=== PATIENT | female | born 1970 | race Caucasian/White ===

== ENCOUNTER → 2016-06-05 | Outpatient (CLI) | payer MEDICAID ==
[2016-06-05 08:36] LABS: CHLORIDE,CL 113 mmol/L (98-110); SODIUM,NA 142 mmol/L (136-146)
== END ==
LOC: MW.CHRC 07:53
PROVIDERS: ATTEND Family Medicine
DX: I10 Essential (primary) hypertension (principal); E78.00 Pure hypercholesterolemia, unspecified; R73.01 Impaired fasting glucose
CPT/HCPCS: 36415; 80053; 80061; 83036; 93005

== ENCOUNTER → 2016-06-27 | Outpatient (CLI) | payer MEDICAID ==
--- NOTE | 2016-06-27 13:53 | MY ---
EXAMINATION: Bilateral digital mammography utilizing CAD. HISTORY: Screening exam. Baseline. FINDINGS: Bilateral scattered fibroglandular densities. No suspicious calcifications, masses or a rchitectural distortions. No pathologic appearing lymph nodes, no abnormal skin thickening or nipp le inversion. CAD highlighted regions appear normal at this time. IMPRESSION: BI-RADS category I - negative mammogram. Continued screening according to ACR-ACS gu idelines suggested. THE FALSE-NEGATIVE RATE OF MAMMOGRAM IS APPROXIMATELY 10%. MANAGEMENT OF A PALPABLE ABNORMALITY MUST BE BASED UPON CLINICAL GROUNDS. SENSITIVITY FOR DETECTION OF ABNORMALITIES IN DENSE BREASTS IS LOW. NOTE: A letter will be sent to the patient regarding findings. [facility] [place] [phone] - FAX [phone]
== END ==
LOC: MW.MAM 10:21
PROVIDERS: ATTEND Obstetrics & Gynecology
DX: Z12.31 Encounter for screening mammogram for malignant neoplasm of breast (principal)
CPT/HCPCS: G0202; G0202-26

== ENCOUNTER 2016-09-05 18:16 | Emergency (ER) | payer MEDICAID ==
--- NOTE | 2016-09-05 18:54 | EDM.PDOC ---
ED HPI GENERAL MEDICAL PROBLEM - General Chief Complaint: General Stated Complaint: SUNBURN ON LT LEG CALF Time Seen by Provider: 09/05/16 18:49 Source of Information: Reports: Patient History Limitations: Reports: No Limitations - History of Present Illness INITIAL COMMENTS - FREE TEXT/NARRATIVE: HISTORY AND PHYSICAL: [Recipient girl who now presents with a rash to her left lower leg posteriorly] History of Present Illness: [Rash began yesterday has some mild itching Recently treated for cellulitis with cephalexin] Review of Systems: As per history of present illness and below otherwise all systems reviewed and negative. Past medical history: As per history of present illness and as reviewed below otherwise noncontributory. Surgical history: As per history of present illness and as reviewed below otherwise noncontributory. Social history: No reported history of drug or alcohol abuse. Family history: As per history of present illness and as reviewed below otherwise noncontributory. Physical exam: Alert oriented female, answering questions appropriately, she has good eye contact. Primary care provider is Dr. dickey. HEENT: Atraumatic, normocehpalic, pupils reactive, negative for conjunctival pallor or scleral icterus, mucous membranes moist, throat clear, neck supple, nontender, trachea midline. Lungs: Clear to auscultation, breath sounds equal bilaterally, chest non tender. Heart: S1S2, regular, negative for clicks, rubs, or JVD. Abdomen: Soft, nondistended, nontender. Negative for masses or hepatossplenmegaly. Negative for costovertebral tenderness. Pelvis: Stable nontender. Genitourinary: Deferred. Rectal: Deferred Extremities: Atraumatic, negative for cords or calf pain. A posterior left calf has raised erythema. It is hot to touch, 2 small areas bilaterally have been opened and now are crusted over. Pedal pulses are present sensation is intact. Neurovascular unremarkable. Neuro: Awake, alert, oriented. Cranial nerves II through XII unremarkable. Cerebellum unremarkable. Motor and sensory unremarkable throughout. Exam nonfocal. Diagnostics: [] Therapeutics: [] Impression: [] Cellulitis left calf Plan: [Antibiotic therapy of Bactrim DS one twice a day #28 no refill Moist heat to this area 20 minutes daily Followup with Dr. dickey in the next 4-5 days] Definitive disposition and diagnosis as appropriate pending reevaluation and review of above. Onset: Sudden Duration: Day(s): (2), Getting Worse Location: Reports: Lower Extremity, Left Quality: Reports: Burning Severity: Moderate Improves with: Reports: None Left Lower Leg Pain Score (Numeric/FACES): 7 - Related Data Allergies Allergy/AdvReac Type Severity Reaction Status Date / Time carbamazepine [From Tegretol] Allergy Other Verified 09/05/16 18:48 Home Meds: Home Meds Azithromycin [Zithromax] 1 package PO DAILY #1 packet 05/09/15 [Rx] Citalopram [Citalopram HBr] 40 mg PO DAILY 05/09/15 [History] Diclofenac Sodium [Voltaren] 25 mg PO BID 05/09/15 [History] Haloperidol [Haloperidol] 5 mg PO DAILY 05/09/15 [History] Hydrocort/Neomycin/Polymyxin B [Cortisporin Otic Soln] 3 drop .XX QID #1 bottle 05/09/15 [Rx] Lisinopril [Lisinopril] 10 mg PO DAILY 05/09/15 [History] Montelukast [Singulair] 10 mg PO BEDTIME 05/09/15 [History] Ziprasidone HCl [Ziprasidone HCl] 60 mg PO DAILY 05/09/15 [History] guaiFENesin/Codeine Phosphate [Cheratussin AC Syrup] 5 ml PO Q4HR PRN #236 liquid 05/09/15 [Rx] hydrOXYzine HCl [Atarax] 10 mg PO DAILY 05/09/15 [History] traMADol [Take Home: traMADol 50 MG, 4 Tab Pack] 50 mg PO BID 05/09/15 [History] Sulfamethoxazole/Trimethoprim [Bactrim Ds Tablet] 1 each PO BID #28 tablet 09/05 [Rx] Past Medical History HEENT History: Reports: Impaired Vision Cardiovascular History: Reports: Hypertension, SOB on Exertion, Syncope Respiratory History: Reports: Asthma, Bronchitis, Recurrent Gastrointestinal History: Reports: Other (See Below) Other Gastrointestinal History: abdominal abscess Genitourinary History: Reports: None 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: Reports: 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 Musculoskeletal History: Reports: Arthritis, Back Pain, Chronic, Other (See Below) Other Musculoskeletal History: tendonitis Neurological History: Reports: None, Seizure, Vertigo Psychiatric History: Reports: Addiction, Anxiety, Bipolar, Depression Endocrine/Metabolic History: Reports: Diabetes, Type II, Obesity/BMI 30+, Other (See Below) Other Endocrine/Metabolic History: states borderline DM Hematologic History: Reports: None Immunologic History: Reports: None Oncologic (Cancer) History: Reports: None Dermatologic History: Reports: None - Infectious Disease History Infectious Disease History: Reports: Chicken Pox - Past Surgical History GI Surgical History: Reports: Cholecystectomy, Other (See Below) Musculoskeletal Surgical History: Reports: Other (See Below) Dermatological Surgical History: Reports: Other (See Below) Social & Family History - Family History Family Medical History: Noncontributory - Tobacco Use Smoking Status *Q: Current Every Day Smoker Years of Tobacco use: 15 Packs/Tins Daily: 1 - Recreational Drug Use Recreational Drug Use: No Drug Use in Last 12 Months: No ED ROS GENERAL - Review of Systems Review Of Systems: ROS reveals no pertinent complaints other than HPI. ED EXAM, GENERAL - Physical Exam Exam: See Below (See dictation) Course - Vital Signs Last Recorded V/S: Last Vital Signs Temp 37.0 C 09/05/16 18:41 Pulse 105 H 09/05/16 18:41 Resp 20 09/05/16 18:41 BP 123/67 09/05/16 18:41 Pulse Ox 98 09/05/16 18:41 Departure - Departure Time of Disposition: 18:53 Disposition: Home, Self-Care 01 Condition: good Clinical Impression: Cellulitis of left lower leg - Discharge Information Prescriptions: Sulfamethoxazole/Trimethoprim [Bactrim Ds Tablet] 1 each PO BID #28 tablet Forms: ED Department Discharge Additional Instructions: The following information is given to patients seen in the emergency department who are being discharged to home. This information is to outline your options for follow-up care. We provide all patients seen in our emergency department with a follow-up referral. The need for follow-up, as well as the timing and circumstances, are variable depending upon the specifics of your emergency department visit. If you don't have a primary care physician on staff, we will provide you with a referral. We always advise you to contact your personal physician following an emergency department visit to inform them of the circumstance of the visit and for follow-up with them and/or the need for any referrals to a consulting specialist. The emergency department will also refer you to a specialist when appropriate. This referral assures that you have the opportunity for followup care with a specialist. All of these measure are taken in an effort to provide you with optimal care, which includes your followup. Under all circumstances we always encourage you to contact your private physician who remains a resource for coordinating your care. When calling for followup care, please make the office aware that this follow-up is from your recent emergency room visit. If for any reason you are refused follow-up, please contact the [facility] emergency department at and asked to speak to the emergency department charge nurse. Please wash with Hib[place] daily Prescription has been sent to [facility] Followup with Dr. dickey in 4-5 days
[2016-09-05 19:18] VITALS: BP 120/71
== END 2016-09-05 19:09 | disposition home or self-care (01) ==
LOC: MW.ED 18:16
DX: L03.116 Cellulitis of left lower limb (principal); I10 Essential (primary) hypertension; J45.909 Unspecified asthma, uncomplicated; M19.90 Unspecified osteoarthritis, unspecified site; F41.9 Anxiety disorder, unspecified; F31.9 Bipolar disorder, unspecified; E11.9 Type 2 diabetes mellitus without complications; E66.9 Obesity, unspecified; F17.210 Nicotine dependence, cigarettes, uncomplicated; Z90.49 Acquired absence of other specified parts of digestive tract; Z79.2 Long term (current) use of antibiotics; Z79.899 Other long term (current) drug therapy; Z88.8 Allergy status to other drugs, medicaments and biological substances
CPT/HCPCS: 99283

== ENCOUNTER 2017-11-23 13:32 | Emergency (ER) | payer MEDICAID ==
[2017-11-23 13:55] VITALS: BP 131/72
--- NOTE | 2017-11-23 14:11 | EDM.PDOC ---
ED HPI GENERAL MEDICAL PROBLEM - General Chief Complaint: ENT Problem Stated Complaint: SORE THROAT Time Seen by Provider: 11/23/17 14:10 Source of Information: Reports: Patient History Limitations: Reports: No Limitations - History of Present Illness INITIAL COMMENTS - FREE TEXT/NARRATIVE: HISTORY AND PHYSICAL: History of present illness: Debora is a 47-year-old female here for complaint of sore throat and bronchitis. She is complaining of sore throat, rhinorrhea, ear pain, cough, and wheezing x 1 week. She denies any fevers, chills, nausea, vomiting, diarrhea, chest pain, abdominal pain. She states she has a history of bronchitis. Patient has COPD and uses pulmicort, rescue inhaler, and nebulizer. She has been using these which helps. Patient states the only thing that helps is a steroid. Patient notes that she has a lot of stress and is having "hour long seizures all day long" the past week. She denies any seizure activity today. She states her boyfriend never called EMS for her seizures and she hasn't had a follow up for this. She also notes a history of psuedoseizures and bipolar disorder. Patient has seen Dr. Yi in the past. Review of systems: As per history of present illness and below otherwise all systems reviewed and negative. Past medical history: As per history of present illness and as reviewed below otherwise noncontributory. Surgical history: As per history of present illness and as reviewed below otherwise noncontributory. Social history: Smokes 1 ppd Family history: As per history of present illness and as reviewed below otherwise noncontributory. Physical exam: General: patient sitting comfortably in no acute distress HEENT: Atraumatic, normocephalic, pupils reactive, negative for conjunctival pallor or scleral icterus, mucous membranes moist, throat clear, neck supple, nontender, trachea midline. Lungs: Clear to auscultation, breath sounds equal bilaterally, chest nontender. Heart: S1S2, regular, negative for clicks, rubs, or JVD. Abdomen: Apical wheezing noted, no rhonchi or rales. Soft, nondistended, nontender. Negative for masses or hepatosplenomegaly. Negative for costovertebral tenderness. Pelvis: Stable nontender. Genitourinary: Deferred. Rectal: Deferred. Extremities: Atraumatic, negative for cords or calf pain. Neurovascular unremarkable. Neuro: Awake, alert, oriented. Cranial nerves II through XII unremarkable. Cerebellum unremarkable. Motor and sensory unremarkable throughout. Exam nonfocal. Notes: Diagnostics: Rapid Strep, UA, Chest x-ray Therapeutics: Medrol dosepak Azithromycin Impression: Acute bronchitis Plan: 1. Continue rescue inhaler as needed. Take antibiotic and medrol dosepak as prescribed 2. Follow up with primary care provider. Follow up with neurologist or PCP regarding seizures. 3. Return to ED as needed as discussed Definitive disposition and diagnosis as appropriate pending reevaluation and review of above. Back Pain Score (Numeric/FACES): 8 - Related Data Allergies Allergy/AdvReac Type Severity Reaction Status Date / Time carbamazepine [From Tegretol] Allergy Other Verified 11/23/17 13:47 sulfamethoxazole Allergy Hives Verified 11/23/17 13:47 [From Bactrim] trimethoprim [From Bactrim] Allergy Hives Verified 11/23/17 13:47 seasonal Allergy Itching Uncoded 11/23/17 13:47 Home Meds: Home Meds Haloperidol 5 mg PO DAILY 05/09/15 [History] Montelukast [Singulair] 10 mg PO BEDTIME 05/09/15 [History] Ziprasidone HCl 60 mg PO DAILY 05/09/15 [History] hydrOXYzine HCl [Atarax] 10 mg PO DAILY 05/09/15 [History] Losartan [Cozaar] 50 mg PO DAILY 11/23/17 [History] Nabumetone 500 mg PO DAILY 11/23/17 [History] Topiramate 50 mg PO BID 11/23/17 [History] Venlafaxine [Effexor] 37.5 mg PO DAILY 11/23/17 [History] Past Medical History HEENT History: Reports: Impaired Vision Cardiovascular History: Reports: Hypertension, SOB on Exertion, Syncope Respiratory History: Reports: Asthma, Bronchitis, Recurrent Gastrointestinal History: Reports: Other (See Below) Other Gastrointestinal History: abdominal abscess Genitourinary History: Reports: None Other Genitourinary History: cystitis 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 AGENT History: Reports: None Musculoskeletal History: Reports: Arthritis, Back Pain, Chronic, Other (See Below) Other Musculoskeletal History: tendonitis Neurological History: Reports: None, Seizure, Vertigo Psychiatric History: Reports: Addiction, Anxiety, Bipolar, Depression Endocrine/Metabolic History: Reports: Diabetes, Type II, Obesity/BMI 30+, Other (See Below) Other Endocrine/Metabolic History: states borderline DM Hematologic History: Reports: None Immunologic History: Reports: None Oncologic (Cancer) History: Reports: None Dermatologic History: Reports: None Other Dermatologic History: cellulitis - Infectious Disease History Infectious Disease History: Reports: Chicken Pox - Past Surgical History GI Surgical History: Reports: Cholecystectomy, Other (See Below) Musculoskeletal Surgical History: Reports: Other (See Below) Dermatological Surgical History: Reports: Other (See Below) Social & Family History - Family History Family Medical History: Noncontributory - Tobacco Use Smoking Status *Q: Current Every Day Smoker Years of Tobacco use: 30 Packs/Tins Daily: 1 - Caffeine Use Caffeine Use: Reports: None Caffeine Use Comment: 4cups/day - Recreational Drug Use Recreational Drug Use: Yes Drug Use in Last 12 Months: Yes Recreational Drug Type: Reports: Cocaine, Heroin, Marijuana/Hashish, Methamphetamine ED ROS ENT - Review of Systems Review Of Systems: ROS reveals no pertinent complaints other than HPI. ED EXAM, ENT - Physical Exam Exam: See Below (see dictation) Course - Vital Signs Last Recorded V/S: Last Vital Signs Temp 36.2 C 11/23/17 13:50 Pulse 88 11/23/17 13:50 Resp 18 11/23/17 13:50 BP 131/72 11/23/17 13:50 Pulse Ox 98 11/23/17 13:50 - Orders/Labs/Meds Orders: Active Orders 24 hr Category Date Time Status Chest 1V Frontal [CR] Stat Exams 11/23/17 14:10 Taken CULTURE STREP A CONFIRMATION [RM] Stat Lab 11/23/17 14:10 Results HCG QUALITATIVE,URINE [URCHEM] Stat Lab 11/23/17 14:18 Ordered STREP SCRN A RAPID W CULT CONF [RM] Stat Lab 11/23/17 14:10 Ordered Labs: Laboratory Tests 11/23/17 Range/Units 14:18 Urine HCG, Qual NEGATIVE (NEGATIVE) Departure - Departure Time of Disposition: 15:18 Disposition: Home, Self-Care 01 Condition: Good Clinical Impression: Acute bronchitis - Discharge Information Referrals: Braeden Choudhury MD [Primary Care Provider] - Forms: ED Department Discharge Additional Instructions: The following information is given to patients seen in the emergency department who are being discharged to home. This information is to outline your options for follow-up care. We provide all patients seen in our emergency department with a follow-up referral. The need for follow-up, as well as the timing and circumstances, are variable depending upon the specifics of your emergency department visit. If you don't have a primary care physician on staff, we will provide you with a referral. We always advise you to contact your personal physician following an emergency department visit to inform them of the circumstance of the visit and for follow-up with them and/or the need for any referrals to a consulting specialist. The emergency department will also refer you to a specialist when appropriate. This referral assures that you have the opportunity for follow-up care with a specialist. All of these measure are taken in an effort to provide you with optimal care, which includes your follow-up. Under all circumstances we always encourage you to contact your private physician who remains a resource for coordinating your care. When calling for follow-up care, please make the office aware that this follow-up is from your recent emergency room visit. If for any reason you are refused follow-up, please contact the [facility] Emergency Department at and asked to speak to the emergency department charge nurse. [facility] Primary Care [address] [place] [phone] 1. Continue rescue inhaler as needed. Take antibiotic and medrol dosepak as prescribed 2. Follow up with primary care provider. Follow up with neurologist or PCP regarding seizures. 3. Return to ED as needed as discussed - My Orders Last 24 Hours: My Active Orders 11/23/17 14:10 Chest 1V Frontal [CR] Stat CULTURE STREP A CONFIRMATION [RM] Stat STREP SCRN A RAPID W CULT CONF [RM] Stat 11/23/17 14:18 HCG QUALITATIVE,URINE [URCHEM] Stat - Assessment/Plan Last 24 Hours: My Active Orders 11/23/17 14:10 Chest 1V Frontal [CR] Stat CULTURE STREP A CONFIRMATION [RM] Stat STREP SCRN A RAPID W CULT CONF [RM] Stat 11/23/17 14:18 HCG QUALITATIVE,URINE [URCHEM] Stat
--- NOTE | 2017-11-23 22:02 | CR ---
EXAM DATE: 11/23/17 PATIENT'S AGE: 47 Patient: YASHIRA ROTHMAN Facility: [place], [place] Site . Site : 1970 Study: XRay Chest [id number]/24/2018 2:30:59 PM Ordering Physician: Doctor Hernandez Final Report: INDICATION: Pain, shortness of breath. COMPARISON: None. FINDINGS: Bony thorax and soft tissue structures are intact. Cardiac and mediastinal silhouettes are normal. The pulmonary vasculature is normal. The lungs are free of infiltrate. There are no pleural effusions. IMPRESSION: No active cardiopulmonary disease. Dictated by Maranda Reynolds MD @ Nov 23 2017 2:40PM (Electronic Signature) Report Signed by Proxy. [email or web address]
== END 2017-11-23 15:35 | disposition home or self-care (01) ==
LOC: MW.ED 13:32
DX: J20.9 Acute bronchitis, unspecified (principal); F17.210 Nicotine dependence, cigarettes, uncomplicated; I10 Essential (primary) hypertension; E11.9 Type 2 diabetes mellitus without complications; F31.9 Bipolar disorder, unspecified; F41.9 Anxiety disorder, unspecified; Z79.899 Other long term (current) drug therapy; Z88.1 Allergy status to other antibiotic agents; Z88.2 Allergy status to sulfonamides; Z88.8 Allergy status to other drugs, medicaments and biological substances
CPT/HCPCS: 71045; 71045-26; 81025; 87081; 87880-QW; 99283

== ENCOUNTER 2018-08-30 23:51 | Emergency (ER) | payer MEDICARE, OTHER ==
--- NOTE | 2018-08-31 00:02 | EDM.PDOC ---
ED HPI GENERAL MEDICAL PROBLEM - General Chief Complaint: General Stated Complaint: MEDICAL CLEARANCE Time Seen by Provider: 08/31/18 00:00 - History of Present Illness INITIAL COMMENTS - FREE TEXT/NARRATIVE: HISTORY AND PHYSICAL: History of present illness: Patient's 48-year-old female presents in custody of law enforcement for medical clearance patient has no complaints Review of systems: As per history of present illness and below otherwise all systems reviewed and negative. Past medical history: As per history of present illness and as reviewed below otherwise noncontributory. Surgical history: As per history of present illness and as reviewed below otherwise noncontributory. Social history: No reported history of drug or alcohol abuse. Family history: As per history of present illness and as reviewed below otherwise noncontributory. Physical exam: HEENT: Atraumatic, normocephalic, pupils reactive, negative for conjunctival pallor or scleral icterus, mucous membranes moist, throat clear, neck supple, nontender, trachea midline. Lungs: Clear to auscultation, breath sounds equal bilaterally, chest nontender. Heart: S1S2, regular, negative for clicks, rubs, or JVD. Abdomen: Soft, nondistended, nontender. Negative for masses or hepatosplenomegaly. Negative for costovertebral tenderness. Pelvis: Stable nontender. Genitourinary: Deferred. Rectal: Deferred. Extremities: Atraumatic, negative for cords or calf pain. Neurovascular unremarkable. Neuro: Awake, alert, oriented. Cranial nerves II through XII unremarkable. Cerebellum unremarkable. Motor and sensory unremarkable throughout. Exam nonfocal. Diagnostics: None Therapeutics: None Impression: #1 medically cleared for incarceration Definitive disposition and diagnosis as appropriate pending reevaluation and review of above. Generalized Pain Score (Numeric/FACES): 7 - Related Data Allergies Allergy/AdvReac Type Severity Reaction Status Date / Time carbamazepine [From Tegretol] Allergy Other Verified 08/30/18 23:54 sulfamethoxazole Allergy Hives Verified 08/30/18 23:54 [From Bactrim] trimethoprim [From Bactrim] Allergy Hives Verified 08/30/18 23:54 seasonal Allergy Itching Uncoded 08/30/18 23:54 Home Meds: Home Meds Haloperidol 5 mg PO DAILY 05/09/15 [History] Montelukast [Singulair] 10 mg PO BEDTIME 05/09/15 [History] Ziprasidone HCl 60 mg PO DAILY 05/09/15 [History] hydrOXYzine HCl [Atarax] 10 mg PO DAILY 05/09/15 [History] Azithromycin [Zithromax] 250 mg PO ASDIRECTED #1 dosepk 11/23/17 [Rx] Losartan [Cozaar] 50 mg PO DAILY 11/23/17 [History] Nabumetone 500 mg PO DAILY 11/23/17 [History] Topiramate 50 mg PO BID 11/23/17 [History] Venlafaxine [Effexor] 37.5 mg PO DAILY 11/23/17 [History] methylPREDNISolone [Medrol] 4 mg PO ASDIRECTED #1 dosepk 11/23/17 [Rx] Past Medical History HEENT History: Reports: Impaired Vision Cardiovascular History: Reports: Hypertension, SOB on Exertion, Syncope Respiratory History: Reports: Asthma, Bronchitis, Recurrent Gastrointestinal History: Reports: Other (See Below) Other Gastrointestinal History: abdominal abscess Genitourinary History: Reports: None Other Genitourinary History: cystitis 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 Musculoskeletal History: Reports: Arthritis, Back Pain, Chronic, Other (See Below) Other Musculoskeletal History: tendonitis Neurological History: Reports: None, Seizure, Vertigo Psychiatric History: Reports: Addiction, Anxiety, Bipolar, Depression Endocrine/Metabolic History: Reports: Diabetes, Type II, Obesity/BMI 30+, Other (See Below) Other Endocrine/Metabolic History: states borderline DM Hematologic History: Reports: None Immunologic History: Reports: None Oncologic (Cancer) History: Reports: None Dermatologic History: Reports: None Other Dermatologic History: cellulitis - Infectious Disease History Infectious Disease History: Reports: Chicken Pox - Past Surgical History GI Surgical History: Reports: Cholecystectomy, Other (See Below) Musculoskeletal Surgical History: Reports: Other (See Below) Dermatological Surgical History: Reports: Other (See Below) Social & Family History - Family History Family Medical History: Noncontributory - Tobacco Use Smoking Status *Q: Current Every Day Smoker Years of Tobacco use: 31 Packs/Tins Daily: 2 - Caffeine Use Caffeine Use: Reports: Coffee, Soda, Other Other Caffeine Use: caffeine pills Caffeine Use Comment: 4cups/day - Recreational Drug Use Recreational Drug Use: Yes Drug Use in Last 12 Months: Yes Recreational Drug Type: Reports: Marijuana/Hashish, Methamphetamine Other Recreational Drug Type: States used today. Marijuana-inhales, meth- sniffs it Recreational Drug Use Frequency: Daily ED ROS GENERAL - Review of Systems Review Of Systems: ROS reveals no pertinent complaints other than HPI. ED EXAM, GENERAL - Physical Exam Exam: See Below (See dictation) Course - Vital Signs Last Recorded V/S: Last Vital Signs Temp 36.1 C 08/30/18 23:54 Pulse 71 08/30/18 23:54 Resp 20 08/30/18 23:54 BP 137/87 08/30/18 23:54 Pulse Ox 96 08/30/18 23:54 Departure - Departure Time of Disposition: 00:01 Disposition: Home, Self-Care 01 Condition: Good Clinical Impression: Medical clearance for incarceration - Discharge Information Referrals: PCP,None [Primary Care Provider] - Additional Instructions: The following information is given to patients seen in the emergency department who are being discharged to home. This information is to outline your options for follow-up care. We provide all patients seen in our emergency department with a follow-up referral. The need for follow-up, as well as the timing and circumstances, are variable depending upon the specifics of your emergency department visit. If you don't have a primary care physician on staff, we will provide you with a referral. We always advise you to contact your personal physician following an emergency department visit to inform them of the circumstance of the visit and for follow-up with them and/or the need for any referrals to a consulting specialist. The emergency department will also refer you to a specialist when appropriate. This referral assures that you have the opportunity for followup care with a specialist. All of these measure are taken in an effort to provide you with optimal care, which includes your followup. Under all circumstances we always encourage you to contact your private physician who remains a resource for coordinating your care. When calling for followup care, please make the office aware that this follow-up is from your recent emergency room visit. If for any reason you are refused follow-up, please contact the [facility] emergency department at and asked to speak to the emergency department charge nurse. Follow-up primary medical doctor as needed as discussed return as needed as discussed
[2018-08-31 00:12] VITALS: BP 127/86
== END 2018-08-31 00:09 | disposition home or self-care (01) ==
LOC: MW.ED 23:51
DX: Z02.89 Encounter for other administrative examinations (principal); I10 Essential (primary) hypertension; M19.90 Unspecified osteoarthritis, unspecified site; E11.9 Type 2 diabetes mellitus without complications; E66.9 Obesity, unspecified; F41.9 Anxiety disorder, unspecified; F32.9 Major depressive disorder, single episode, unspecified; F17.210 Nicotine dependence, cigarettes, uncomplicated; Z91.09 Other allergy status, other than to drugs and biological substances; Z88.2 Allergy status to sulfonamides; Z88.8 Allergy status to other drugs, medicaments and biological substances; Z79.899 Other long term (current) drug therapy; Z90.49 Acquired absence of other specified parts of digestive tract
CPT/HCPCS: 99282

== ENCOUNTER 2018-11-07 20:32 | Emergency (ER) | payer MEDICARE, MEDICAID ==
--- NOTE | 2018-11-07 20:56 | EDM.PDOC ---
ED HPI GENERAL MEDICAL PROBLEM - General Chief Complaint: Behavioral/Psych Stated Complaint: MENTAL HEALTH CLEARANCE Time Seen by Provider: 11/07/18 20:39 Source of Information: Reports: Patient, Police, RN Notes Reviewed History Limitations: Reports: No Limitations - History of Present Illness INITIAL COMMENTS - FREE TEXT/NARRATIVE: HISTORY AND PHYSICAL: History of present illness: Patient is a 48-year-old female who presents to the ED today for court ordered transfer to psychiatric unit from [facility]. He presents with the police escort who does bring along a court-ordered papers signed by a desulfurizer operator the risk of paranoia and not showing up to take her medication for schizophrenia and bipolar. Patient does express suicidal ideations but denies plan or intent. Patient is willing and accepting of transfer. Patient is forthcoming about using drugs. Patient states she used cocaine this morning and methamphetamine last night. Patient denies any symptoms or concerns at this time. Patient denies fever, chills, chest pain, shortness of breath, or cough. Denies headache, neck stiff ness, change in vision, syncope, or near syncope. Denies nausea, vomiting, abdominal pain, diarrhea, constipation, or dysuria. Has not noted any blood in urine or stool. Patient has been eating and drinking appropriately. Review of systems: As per history of present illness and below otherwise all systems reviewed and negative. Past medical history: As per history of present illness and as reviewed below otherwise noncontributory. Surgical history: As per history of present illness and as reviewed below otherwise noncontributory. Social history: See social history for further information Family history: As per history of present illness and as reviewed below otherwise noncontributory. Physical exam: General: Patient is alert, oriented, and in no acute distress. Appears older than stated age. Patient sitting comfortably on exam table but does have pressured speech and racing thoughts. HEENT: Atraumatic, normocephalic, pupils equal and reactive bilaterally, negative for conjunctival pallor or scleral icterus, mucous membranes tacky, TMs normal bilaterally, throat clear, neck supple, nontender, trachea midline. No drooling or trismus noted. No meningeal signs. No hot potato voice noted. Lungs: Clear to auscultation, breath sounds equal bilaterally, chest nontender. Heart: S1S2, regular rate and rhythm without overt murmur Abdomen: Soft, nondistended, nontender. Negative for masses or hepatosplenomegaly. Negative for costovertebral tenderness. Pelvis: Stable nontender. Genitourinary: Deferred. Rectal: Deferred. Skin: Intact, warm, dry. No lesions or rashes noted. Extremities: Atraumatic, negative for cords or calf pain. Neurovascular unremarkable. Neuro: Awake, alert, oriented. Cranial nerves II through XII unremarkable. Cerebellum unremarkable. Motor and sensory unremarkable throughout. Exam nonfocal. Notes: Dr. Hargrove, psychiatrist aviation mechanic for , consulted on patient and accepting of transfer. Police are able to transfer patient so we will transfer via police. Voices understanding and is agreeable to plan of care. Denies any further questions or concerns at this time. Diagnostics: CBC, CMP, UA, urine drug screen, salicylic, acetaminophen, TSH, magnesium, EKG Therapeutics: None Impression: Medical screening exam Drug abuse Depression with suicidal ideations without plan H/O bipolar disorder and schizophrenia, unspecified Plan: 1. Transfer to [facility] to Dr. Hargrove via police. Definitive disposition and diagnosis as appropriate pending reevaluation and review of above. body Pain Score (Numeric/FACES): 8 - Related Data Allergies Allergy/AdvReac Type Severity Reaction Status Date / Time carbamazepine [From Tegretol] Allergy Other Verified 11/07/18 20:36 sulfamethoxazole Allergy Hives Verified 11/07/18 20:36 [From Bactrim] trimethoprim [From Bactrim] Allergy Hives Verified 11/07/18 20:36 seasonal Allergy Itching Uncoded 11/07/18 20:36 Home Meds: Home Meds Haloperidol 5 mg PO DAILY 05/09/15 [History] Montelukast [Singulair] 10 mg PO BEDTIME 05/09/15 [History] Ziprasidone HCl 60 mg PO DAILY 05/09/15 [History] hydrOXYzine HCl [Atarax] 10 mg PO DAILY 05/09/15 [History] Losartan [Cozaar] 50 mg PO DAILY 11/23/17 [History] Nabumetone 500 mg PO DAILY 11/23/17 [History] Topiramate 50 mg PO BID 11/23/17 [History] Venlafaxine [Effexor] 37.5 mg PO DAILY 11/23/17 [History] methylPREDNISolone [Medrol] 4 mg PO ASDIRECTED #1 dosepk 11/23/17 [Rx] Past Medical History HEENT History: Reports: Impaired Vision Cardiovascular History: Reports: Hypertension, SOB on Exertion, Syncope Respiratory History: Reports: Asthma, Bronchitis, Recurrent Gastrointestinal History: Reports: Other (See Below) Other Gastrointestinal History: abdominal abscess Genitourinary History: Reports: None Other Genitourinary History: cystitis 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 Musculoskeletal History: Reports: Arthritis, Back Pain, Chronic, Other (See Below) Other Musculoskeletal History: tendonitis Neurological History: Reports: None, Seizure, Vertigo Psychiatric History: Reports: Addiction, Anxiety, Bipolar, Depression Endocrine/Metabolic History: Reports: Diabetes, Type II, Obesity/BMI 30+, Other (See Below) Other Endocrine/Metabolic History: states borderline DM Hematologic History: Reports: None Immunologic History: Reports: None Oncologic (Cancer) History: Reports: None Dermatologic History: Reports: None Other Dermatologic History: cellulitis - Infectious Disease History Infectious Disease History: Reports: Chicken Pox - Past Surgical History GI Surgical History: Reports: Cholecystectomy, Other (See Below) Musculoskeletal Surgical History: Reports: Other (See Below) Dermatological Surgical History: Reports: Other (See Below) Social & Family History - Family History Family Medical History: Noncontributory - Caffeine Use Caffeine Use: Reports: Coffee, Soda, Other Other Caffeine Use: caffeine pills Caffeine Use Comment: 4cups/day ED ROS GENERAL - Review of Systems Review Of Systems: ROS reveals no pertinent complaints other than HPI. ED EXAM, GENERAL - Physical Exam Exam: See Below (See dictation) Course - Vital Signs Last Recorded V/S: Last Vital Signs Temp 36.4 C 11/07/18 20:35 Pulse 74 11/07/18 21:30 Resp 20 11/07/18 21:30 BP 137/98 H 11/07/18 21:30 Pulse Ox 97 11/07/18 21:30 - Orders/Labs/Meds Orders: Active Orders 24 hr Category Date Time Status EKG Documentation Completion [RC] STAT Care 11/07/18 20:39 Active CULTURE URINE [RM] Stat Lab 11/07/18 22:31 Ordered Labs: Laboratory Tests 11/07/18 11/07/18 11/07/18 Range/Units 20:50 20:50 20:50 WBC (4.0-11.0) K/uL RBC (4.30-5.90) M/uL Hgb (12.0-16.0) g/dL Hct (36.0-46.0) % MCV (80.0-98.0) fL MCH (27.0-32.0) pg MCHC (31.0-37.0) g/dL RDW Std Deviation (28.0-62.0) fl RDW Coeff of Keely (11.0-15.0) % Plt Count (150-400) K/uL MPV (7.40-12.00) fL Neut % (Auto) (48.0-80.0) % Lymph % (Auto) (16.0-40.0) % [place] % (Auto) (0.0-15.0) % Eos % (Auto) (0.0-7.0) % Baso % (Auto) (0.0-1.5) % Neut # (Auto) (1.4-5.7) K/uL Lymph # (Auto) (0.6-2.4) K/uL [place] # (Auto) (0.0-0.8) K/uL Eos # (Auto) (0.0-0.7) K/uL Baso # (Auto) (0.0-0.1) K/uL Nucleated RBC % /100WBC Nucleated RBCs # K/uL Sodium (136-145) mmol/L Potassium (3.5-5.1) mmol/L Chloride (98-107) mmol/L Carbon Dioxide (21.0-32.0) mmol/L BUN (7.0-18.0) mg/dL Creatinine (0.6-1.0) mg/dL Est Cr Clr Drug Dosing Estimated GFR (MDRD) ml/min Glucose (74-106) mg/dL Calcium (8.5-10.1) mg/dL Magnesium (1.8-2.4) mg/dL Total Bilirubin (0.2-1.0) mg/dL AST (15-37) IU/L ALT (14-63) IU/L Alkaline Phosphatase (46-116) U/L Total Protein (6.4-8.2) g/dL Albumin (3.4-5.0) g/dL Globulin (2.6-4.0) g/dL Albumin/Globulin Ratio (0.9-1.6) TSH 3rd Generation (0.36-3.74) uIU/mL Urine Color YELLOW Urine Appearance SLT CLOUDY Urine pH 5.5 (5.0-8.0) Ur Specific [place] >= 1.030 (1.001-1.035) Urine Protein NEGATIVE (NEGATIVE) mg/dL Urine Glucose (UA) NEGATIVE (NEGATIVE) mg/dL Urine Ketones 15 H (NEGATIVE) mg/dL Urine Occult Blood NEGATIVE (NEGATIVE) Urine Nitrite NEGATIVE (NEGATIVE) Urine Bilirubin NEGATIVE (NEGATIVE) Urine Urobilinogen 0.2 (<2.0) EU/dL Ur Leukocyte Esterase NEGATIVE (NEGATIVE) Urine RBC NONE SEEN (0-2/HPF) Urine WBC 2-4 (0-5/HPF) Ur Epithelial Cells FEW (NONE-FEW) Urine Bacteria 2+ H (NEGATIVE) Urine Mucus MODERATE (NONE-MOD) Urine HCG, Qual NEGATIVE (NEGATIVE) Salicylates (0-20) mg/dL Urine Opiates Screen NEGATIVE (NEGATIVE) Ur Oxycodone Screen NEGATIVE (NEGATIVE) Urine Methadone Screen NEGATIVE (NEGATIVE) Acetaminophen ug/mL Ur Barbiturates Screen NEGATIVE (NEGATIVE) Ur Phencyclidine Scrn POSITIVE (NEGATIVE) Ur Amphetamine Screen POSITIVE (NEGATIVE) U Methamphetamines Scrn POSITIVE (NEGATIVE) U Benzodiazepines Scrn NEGATIVE (NEGATIVE) U Cocaine Metab Screen POSITIVE (NEGATIVE) U Marijuana (THC) Screen POSITIVE (NEGATIVE) Ethyl Alcohol mg/dL 11/07/18 11/07/18 Range/Units 20:54 20:54 WBC 7.83 (4.0-11.0) K/uL RBC 4.76 (4.30-5.90) M/uL Hgb 15.3 (12.0-16.0) g/dL Hct 45.2 (36.0-46.0) % MCV 95.0 (80.0-98.0) fL MCH 32.1 H (27.0-32.0) pg MCHC 33.8 (31.0-37.0) g/dL RDW Std Deviation 46.8 (28.0-62.0) fl RDW Coeff of Keely 14 (11.0-15.0) % Plt Count 315 (150-400) K/uL MPV 9.70 (7.40-12.00) fL Neut % (Auto) 49.7 (48.0-80.0) % Lymph % (Auto) 37.2 (16.0-40.0) % [place] % (Auto) 8.2 (0.0-15.0) % Eos % (Auto) 4.6 (0.0-7.0) % Baso % (Auto) 0.3 (0.0-1.5) % Neut # (Auto) 3.9 (1.4-5.7) K/uL Lymph # (Auto) 2.9 H (0.6-2.4) K/uL [place] # (Auto) 0.6 (0.0-0.8) K/uL Eos # (Auto) 0.4 (0.0-0.7) K/uL Baso # (Auto) 0.0 (0.0-0.1) K/uL Nucleated RBC % 0.0 /100WBC Nucleated RBCs # 0 K/uL Sodium 141 (136-145) mmol/L Potassium 3.9 (3.5-5.1) mmol/L Chloride 107 (98-107) mmol/L Carbon Dioxide 24.6 (21.0-32.0) mmol/L BUN 11 (7.0-18.0) mg/dL Creatinine 0.8 (0.6-1.0) mg/dL Est Cr Clr Drug Dosing TNP Estimated GFR (MDRD) > 60.0 ml/min Glucose 133 H (74-106) mg/dL Calcium 9.3 (8.5-10.1) mg/dL Magnesium 2.4 (1.8-2.4) mg/dL Total Bilirubin 0.4 (0.2-1.0) mg/dL AST 34 (15-37) IU/L ALT 44 (14-63) IU/L Alkaline Phosphatase 78 (46-116) U/L Total Protein 7.3 (6.4-8.2) g/dL Albumin 4.2 (3.4-5.0) g/dL Globulin 3.1 (2.6-4.0) g/dL Albumin/Globulin Ratio 1.4 (0.9-1.6) TSH 3rd Generation 2.05 (0.36-3.74) uIU/mL Urine Color Urine Appearance Urine pH (5.0-8.0) Ur Specific [place] (1.001-1.035) Urine Protein (NEGATIVE) mg/dL Urine Glucose (UA) (NEGATIVE) mg/dL Urine Ketones (NEGATIVE) mg/dL Urine Occult Blood (NEGATIVE) Urine Nitrite (NEGATIVE) Urine Bilirubin (NEGATIVE) Urine Urobilinogen (<2.0) EU/dL Ur Leukocyte Esterase (NEGATIVE) Urine RBC (0-2/HPF) Urine WBC (0-5/HPF) Ur Epithelial Cells (NONE-FEW) Urine Bacteria (NEGATIVE) Urine Mucus (NONE-MOD) Urine HCG, Qual (NEGATIVE) Salicylates 5.4 (0-20) mg/dL Urine Opiates Screen (NEGATIVE) Ur Oxycodone Screen (NEGATIVE) Urine Methadone Screen (NEGATIVE) Acetaminophen <2.0 ug/mL Ur Barbiturates Screen (NEGATIVE) Ur Phencyclidine Scrn (NEGATIVE) Ur Amphetamine Screen (NEGATIVE) U Methamphetamines Scrn (NEGATIVE) U Benzodiazepines Scrn (NEGATIVE) U Cocaine Metab Screen (NEGATIVE) U Marijuana (THC) Screen (NEGATIVE) Ethyl Alcohol < 3.0 mg/dL Departure - Departure Time of Disposition: 22:46 Disposition: DC/Tfer to Acute Hospital 02 Clinical Impression: Drug abuse, History of bipolar disorder, History of schizophrenia, Encounter for medical screening examination - Discharge Information - My Orders Last 24 Hours: My Active Orders 11/07/18 20:39 EKG Documentation Completion [RC] STAT 11/07/18 22:31 CULTURE URINE [RM] Stat - Assessment/Plan Last 24 Hours: My Active Orders 11/07/18 20:39 EKG Documentation Completion [RC] STAT 11/07/18 22:31 CULTURE URINE [RM] Stat
[2018-11-07 21:45] LABS: BLOOD UREA NITROGEN,BUN 11 mg/dL (7.0-18.0); CARBON DIOXIDE,CO2 24.6 mmol/L (21.0-32.0); CHLORIDE,CL 107 mmol/L (98-107); GLUCOSE RANDOM 133 mg/dL (74-106); POTASSIUM,K 3.9 mmol/L (3.5-5.1); SODIUM,NA 141 mmol/L (136-145)
[2018-11-07 22:20] LABS: ACETAMINOPHEN <2.0 ug/mL
[2018-11-07 22:45] VITALS: BP 159/97; PULSE 76
== END 2018-11-07 23:35 ==
LOC: MW.ED 20:32
DX: F32.9 Major depressive disorder, single episode, unspecified (principal); F19.10 Other psychoactive substance abuse, uncomplicated; I10 Essential (primary) hypertension; E11.9 Type 2 diabetes mellitus without complications; F41.9 Anxiety disorder, unspecified; E66.9 Obesity, unspecified; Z68.30 Body mass index [BMI] 30.0-30.9, adult; Z88.8 Allergy status to other drugs, medicaments and biological substances; Z79.899 Other long term (current) drug therapy
CPT/HCPCS: 36415; 80053; 80305; 81001; 81025; 83735; 84443; 85025; 87086; 93005; 99285; G0480; 99284

== ENCOUNTER 2020-01-16 13:48 | Emergency (ER) | payer SELFPAY ==
[2020-01-16 14:11] VITALS: BP 157/85; PULSE 117
--- NOTE | 2020-01-16 14:16 | EDM.PDOC ---
ED HPI GENERAL MEDICAL PROBLEM - General Chief Complaint: General Stated Complaint: MEDICAL CLEARANCE Time Seen by Provider: 01/16/20 13:54 Source of Information: Reports: Patient History Limitations: Reports: No Limitations - History of Present Illness INITIAL COMMENTS - FREE TEXT/NARRATIVE: HISTORY AND PHYSICAL: History of present illness: Patient is a 49-year-old female who presents to the emergency room with law enforcement for medical screening exam. Patient states she does not want to be here in the emergency room and has no current complaints or concerns other than her chronic pain. Patient denies any fever, chills, headache, change in vision, syncope or near syncope. Denies any chest pain, back pain, shortness of breath or cough. Denies any abdominal pain, nausea, vomiting, diarrhea, constipation or dysuria. Has not noted any blood in urine or stool. Patient has been eating and drinking appropriately. Law enforcement has no specific concerns for her to be particularly evaluated. Review of systems: As per history of present illness and below otherwise all systems reviewed and negative. Past medical history: As per history of present illness and as reviewed below otherwise noncontributory. Surgical history: As per history of present illness and as reviewed below otherwise noncontributory. Social history: See social history for further information Family history: As per history of present illness and as reviewed below otherwise noncontributory. Physical exam: General: Well developed and well nourished. Alert and orientated x 3. Nontoxic in appearance and in no acute distress. Vital signs are stable and have been reviewed by me. Nursing notes were reviewed. HEENT: Atraumatic, normocephalic, pupils equal and reactive bilaterally, ne gative for conjunctival pallor or scleral icterus, mucous membranes moist, TMs normal bilaterally, throat clear, neck supple, nontender, trachea midline. No drooling or trismus noted. No meningeal signs. No hot potato voice noted. Lungs: Clear to auscultation, breath sounds equal bilaterally, chest nontender. Normal work of breathing, no accessory muscles used. Heart: S1S2, regular rate and rhythm without overt murmur Abdomen: Soft, nondistended, nontender. Negative for masses or hepatosplenomegaly. Negative for costovertebral tenderness. Skin: Intact, warm, dry. No lesions or rashes noted. Hematologic: No petechiae or purpra. Mucosa appropriate color and normal nail bed color and refill. Extremities: Atraumatic, moves all extremities per self without difficulty or deficits, negative for cords or calf pain. Neurovascular unremarkable. Neuro: Awake, alert, oriented. Cranial nerves II through XII unremarkable. Cerebellum unremarkable. Motor and sensory unremarkable throughout. Exam nonf ocal. Psychiatric: Mood and affect are appropriate. Normal thought process. Answering questions appropriately. Notes: She is agreeable to a bedside blood sugar. Otherwise declines any diagnostics. I have spoken with the patient/caregiver and discussed today's findings, in addition to providing specific details for plan of care. Reassessment at the time of disposition demonstrates that the patient is in no acute distress. The patient is stable for discharge, counseling was provided and we discussed in great detail signs and symptoms that would prompt them to return to the Emergency Department. Medication, follow up and supportive care measures were reviewed and discussed. Voices understanding and is agreeable to plan of care. Denies any further questions or concerns at this time. Diagnostics: Blood sugar Therapeutics: None Prescription: None Impression: Encounter for medical screening exam Plan: 1. Today you were evaluated for medical screening exam. 2. Continue taking your home medications as directed. 3. We encourage you to follow up with your primary care provider and/or recommended specialist in the next few days for re-evaluation and further care/management. If your symptoms should worsen, new symptoms develop or any of the signs and symptoms we discussed should arise please return to the emergency room or call 911 (if needed). Definitive disposition and diagnosis as appropriate pending reevaluation and review of above. - Related Data Allergies Allergy/AdvReac Type Severity Reaction Status Date / Time Unable to Assess Allergy Unverified 01/16/20 14:17 Home Meds: Home Meds . [Unable to Verify Home Med List] 01/16/20 [History] ED ROS GENERAL - Review of Systems Review Of Systems: Comprehensive ROS is negative, except as noted in HPI. ED EXAM, GENERAL - Physical Exam Exam: See Below (See dictation) Course - Vital Signs Last Recorded V/S: Last Vital Signs Temp 95.6 F L 01/16/20 14:08 Pulse 117 H 01/16/20 14:08 Resp 16 01/16/20 14:08 BP 157/85 H 01/16/20 14:08 Pulse Ox 95 01/16/20 14:08 - Orders/Labs/Meds Orders: Active Orders 24 hr Category Date Time Status Blood Glucose Check, Bedside [RC] ONETIME Care 01/16/20 14:14 Active Labs: Laboratory Tests 01/16/20 Range/Units 14:20 POC Glucose 91 (60-110) mg/dL Departure - Departure Time of Disposition: 14:16 Disposition: Home, Self-Care 01 Clinical Impression: Encounter for medical screening examination - Discharge Information Instructions: Medical Screening Exam Referrals: PCP,None [Primary Care Provider] - Forms: ED Department Discharge Additional Instructions: The following information is given to patients seen in the emergency department who are being discharged to home. This information is to outline your options for follow-up care. We provide all patients seen in our emergency department with a follow-up referral. The need for follow-up, as well as the timing and circumstances, are variable depending upon the specifics of your emergency department visit. If you don't have a primary care physician on staff, we will provide you with a referral. We always advise you to contact your personal physician following an emergency department visit to inform them of the circumstance of the visit and for follow-up with them and/or the need for any referrals to a consulting specialist. The emergency department will also refer you to a specialist when appropriate. This referral assures that you have the opportunity for follow-up care with a specialist. All of these measure are taken in an effort to provide you with optimal care, which includes your follow-up. Under all circumstances we always encourage you to contact your private physician who remains a resource for coordinating your care. When calling for follow-up care, please make the office aware that this follow-up is from your recent emergency room visit. If for any reason you are refused follow-up, please contact the [facility] Emergency Department at and asked to speak to the emergency department charge nurse. [facility] [address] [place] [id number] [facility] [address] [place] [address] Thank you for choosing the [facility] emergency department in [place] for your medical needs today. It was a pleasure caring for you. Today you were seen in the emergency department for medical screening exam. 1. Today you were evaluated for medical screening exam. 2. Continue taking your home medications as directed. 3. We encourage you to follow up with your primary care provider and/or recommended specialist in the next few days for re-evaluation and further care/management. If your symptoms should worsen, new symptoms develop or any of the signs and symptoms we discussed should arise please return to the emergency room or call 911 (if needed). Sepsis Event Note (ED) - Evaluation Sepsis Screening Result: No Definite Risk - Focused Exam Vital Signs: Vital Signs Temp Pulse Resp BP Pulse Ox 01/16/20 14:08 95.6 F L 117 H 16 157/85 H 95 - My Orders Last 24 Hours: My Active Orders 01/16/20 14:14 Blood Glucose Check, Bedside [RC] ONETIME - Assessment/Plan Last 24 Hours: My Active Orders 01/16/20 14:14 Blood Glucose Check, Bedside [RC] ONETIME
== END 2020-01-16 14:29 ==
LOC: EDBD → MERGE 13:48 → MW.ED 13:48
DX: Z02.89 Encounter for other administrative examinations (principal)
CPT/HCPCS: 82962; 99282; 99283

== ENCOUNTER 2020-01-16 15:46 | Emergency (ER) | payer SELFPAY ==
[2020-01-16 17:54] LABS: ACETAMINOPHEN <2.0 ug/mL; BLOOD UREA NITROGEN,BUN 11 mg/dL (7.0-18.0); CARBON DIOXIDE,CO2 24.6 mmol/L (21.0-32.0); CHLORIDE,CL 104 mmol/L (98-107); GLUCOSE RANDOM 106 mg/dL (74-106); POTASSIUM,K 4.1 mmol/L (3.5-5.1); SODIUM,NA 141 mmol/L (136-145)
--- NOTE | 2020-01-16 18:04 | EDM.PDOC ---
ED HPI GENERAL MEDICAL PROBLEM - General Chief Complaint: Behavioral/Psych Stated Complaint: MEDICAL CLEARANCE Time Seen by Provider: 01/16/20 16:16 - History of Present Illness INITIAL COMMENTS - FREE TEXT/NARRATIVE: History of present illness: Patient presents with law enforcement for a court mandated mental health evaluation. She is here for medical screening. Patient has not been compliant with her medication she has a history of schizophrenia she is uncooperative with the H&P and does not want to answer any questions she seems to have pressured speech and is a bit manic at this moment. She denies any suicidal homicidal ideation she will not answer hardly any questions at all. Review of systems: As per history of present illness and below otherwise all systems reviewed and negative. Past medical history: As per history of present illness and as reviewed below otherwise noncontributory. Surgical history: As per history of present illness and as reviewed below otherwise noncontributory. Social history: No reported history of drug or alcohol abuse. Family history: As per history of present illness and as reviewed below otherwise noncontributory. Physical exam: HEENT: Atraumatic, normocephalic, pupils reactive, negative for conjunctival pallor or scleral icterus, mucous membranes moist, throat clear, neck supple, nontender, trachea midline. Lungs: Clear to auscultation, breath sounds equal bilaterally, chest nontender. Heart: S1S2, regular, negative for clicks, rubs, or JVD. Abdomen: Soft, nondistended, nontender. Negative for masses or hepatosplenomegaly. Negative for costovertebral tenderness. Pelvis: Stable nontender. Genitourinary: Deferred. Rectal: Deferred. Extremities: Atraumatic, negative for cords or calf pain. Neurovascular unremarkable. Neuro: Awake, alert, oriented. Cranial nerves II through XII unremarkable. Cerebellum unremarkable. Motor and sensory unremarkable throughout. Exam nonfocal. Diagnostics: [] Therapeutics: [] Impression: Schizophrenia noncompliance here for mandated mental health with a court order [] Plan: Medical screening exam [] Definitive disposition and diagnosis as appropriate pending reevaluation and review of above. - Related Data Allergies Allergy/AdvReac Type Severity Reaction Status Date / Time carbamazepine [From Tegretol] Allergy Other Verified 01/16/20 16:22 sulfamethoxazole Allergy Hives Verified 01/16/20 16:22 [From Bactrim] trimethoprim [From Bactrim] Allergy Hives Verified 01/16/20 16:22 seasonal Allergy Itching Uncoded 01/16/20 16:22 Home Meds: Home Meds Montelukast [Singulair] 10 mg PO BEDTIME 05/09/15 [History] haloperidoL [Haloperidol] 5 mg PO DAILY 05/09/15 [History] hydrOXYzine HCL [Atarax] 10 mg PO DAILY 05/09/15 [History] ziprasidone HCL [Ziprasidone HCl] 60 mg PO DAILY 05/09/15 [History] Losartan [Cozaar] 50 mg PO DAILY 11/23/17 [History] Nabumetone 500 mg PO DAILY 11/23/17 [History] Topiramate 50 mg PO BID 11/23/17 [History] Venlafaxine [Effexor] 37.5 mg PO DAILY 11/23/17 [History] methylPREDNISolone [Medrol] 4 mg PO ASDIRECTED #1 dosepk 11/23/17 [Rx] . 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 Musculoskeletal History: Reports: Arthritis, Back Pain, Chronic, Other (See Below) Other Musculoskeletal History: tendonitis Neurological History: Reports: None, Seizure, Vertigo Psychiatric History: Reports: Addiction, Anxiety, Bipolar, Depression Endocrine/Metabolic History: Reports: Diabetes, Type II, Other (See Below), Obesity/BMI 30+ Other Endocrine/Metabolic History: states borderline DM Hematologic History: Reports: None Immunologic History: Reports: None Oncologic (Cancer) History: Reports: None Dermatologic History: Reports: None Other Dermatologic History: cellulitis - Infectious Disease History Infectious Disease History: Reports: Chicken Pox - Past Surgical History GI Surgical History: Reports: Cholecystectomy, Other (See Below) Musculoskeletal Surgical History: Reports: Other (See Below) Dermatological Surgical History: Reports: Other (See Below) Social & Family History - Family History Family Medical History: Noncontributory - Tobacco Use Tobacco Use Status *Q: Unknown Ever Used Tobacco - Caffeine Use Caffeine Use: Reports: Coffee, Other, Soda Other Caffeine Use: caffeine pills Caffeine Use Comment: 4cups/day ED ROS GENERAL - Review of Systems Review Of Systems: See Below ED EXAM, GENERAL - Physical Exam Exam: See Below #1 Interpretation EKG Interpretation Comments: EKG is normal sinus rhythm with a rate of 72 bpm normal intervals normal axis no ischemia read and interpreted by me Course - Vital Signs Text/Narrative:: Patient is medically cleared for inpatient psychiatric care and evaluation. Discussed with Dr. Brumfield And he will accept the patient at [facility]. He would like a Covid test done before transfer and he would like Haldol and Ativan given. Last Recorded V/S: Last Vital Signs Temp 36.1 C 01/16/20 16:21 Pulse 84 01/16/20 16:21 Resp 16 01/16/20 16:21 BP 143/75 H 01/16/20 16:21 Pulse Ox 95 01/16/20 16:21 - Orders/Labs/Meds Orders: Active Orders 24 hr Category Date Time Status EKG Documentation Completion [RC] STAT Care 01/16/20 17:03 Active CORONAVIRUS COVID-19 PCR PHL Stat Lab 01/16/20 18:55 Ordered DRUG SCREEN, URINE [URCHEM] Stat Lab 01/16/20 17:44 Results Labs: Laboratory Tests 01/16/20 01/16/20 01/16/20 Range/Units 17:15 17:15 17:44 WBC 7.05 (4.0-11.0) K/uL RBC 4.52 (4.30-5.90) M/uL Hgb 14.5 (12.0-16.0) g/dL Hct 44.2 (36.0-46.0) % MCV 97.8 (80.0-98.0) fL MCH 32.1 H (27.0-32.0) pg MCHC 32.8 (31.0-37.0) g/dL RDW Std Deviation 48.6 (28.0-62.0) fl RDW Coeff of Keely 14 (11.0-15.0) % Plt Count 302 (150-400) K/uL MPV 9.90 (7.40-12.00) fL Neut % (Auto) 65.8 (48.0-80.0) % Lymph % (Auto) 25.2 (16.0-40.0) % [place] % (Auto) 6.2 (0.0-15.0) % Eos % (Auto) 2.7 (0.0-7.0) % Baso % (Auto) 0.1 (0.0-1.5) % Neut # (Auto) 4.6 (1.4-5.7) K/uL Lymph # (Auto) 1.8 (0.6-2.4) K/uL [place] # (Auto) 0.4 (0.0-0.8) K/uL Eos # (Auto) 0.2 (0.0-0.7) K/uL Baso # (Auto) 0.0 (0.0-0.1) K/uL Nucleated RBC % 0.0 /100WBC Nucleated RBCs # 0 K/uL Sodium 141 (136-145) mmol/L Potassium 4.1 (3.5-5.1) mmol/L Chloride 104 (98-107) mmol/L Carbon Dioxide 24.6 (21.0-32.0) mmol/L BUN 11 (7.0-18.0) mg/dL Creatinine 0.6 (0.6-1.0) mg/dL Est Cr Clr Drug Dosing 88.72 mL/min Estimated GFR (MDRD) > 60.0 ml/min Glucose 106 (74-106) mg/dL Calcium 8.9 (8.5-10.1) mg/dL Magnesium 2.2 (1.8-2.4) mg/dL Total Bilirubin 0.3 (0.2-1.0) mg/dL AST 23 (15-37) IU/L ALT 31 (14-63) IU/L Alkaline Phosphatase 67 (46-116) U/L Total Protein 6.3 L (6.4-8.2) g/dL Albumin 3.6 (3.4-5.0) g/dL Globulin 2.7 (2.6-4.0) g/dL Albumin/Globulin Ratio 1.3 (0.9-1.6) TSH 3rd Generation 0.79 (0.36-3.74) uIU/mL Urine Color YELLOW Urine Appearance CLEAR Urine pH 7.0 (5.0-8.0) Ur Specific [place] 1.020 (1.001-1.035) Urine Protein NEGATIVE (NEGATIVE) mg/dL Urine Glucose (UA) NEGATIVE (NEGATIVE) mg/dL Urine Ketones NEGATIVE (NEGATIVE) mg/dL Urine Occult Blood NEGATIVE (NEGATIVE) Urine Nitrite NEGATIVE (NEGATIVE) Urine Bilirubin NEGATIVE (NEGATIVE) Urine Urobilinogen 0.2 (<2.0) EU/dL Ur Leukocyte Esterase NEGATIVE (NEGATIVE) Urine RBC 0-2 (0-2/HPF) Urine WBC 0-2 (0-5/HPF) Ur Epithelial Cells FEW (NONE-FEW) Urine Bacteria FEW (NEGATIVE) Urine Mucus LIGHT (NONE-MOD) Salicylates 3.2 (0-20) mg/dL Urine Opiates Screen (NEGATIVE) Ur Oxycodone Screen (NEGATIVE) Urine Methadone Screen (NEGATIVE) Acetaminophen <2.0 ug/mL Ur Barbiturates Screen (NEGATIVE) Ur Phencyclidine Scrn (NEGATIVE) Ur Amphetamine Screen (NEGATIVE) U Methamphetamines Scrn (NEGATIVE) U Benzodiazepines Scrn (NEGATIVE) U Cocaine Metab Screen (NEGATIVE) Ethyl Alcohol <3 mg/dL 01/16/20 Range/Units 17:44 WBC (4.0-11.0) K/uL RBC (4.30-5.90) M/uL Hgb (12.0-16.0) g/dL Hct (36.0-46.0) % MCV (80.0-98.0) fL MCH (27.0-32.0) pg MCHC (31.0-37.0) g/dL RDW Std Deviation (28.0-62.0) fl RDW Coeff of Keely (11.0-15.0) % Plt Count (150-400) K/uL MPV (7.40-12.00) fL Neut % (Auto) (48.0-80.0) % Lymph % (Auto) (16.0-40.0) % [place] % (Auto) (0.0-15.0) % Eos % (Auto) (0.0-7.0) % Baso % (Auto) (0.0-1.5) % Neut # (Auto) (1.4-5.7) K/uL Lymph # (Auto) (0.6-2.4) K/uL [place] # (Auto) (0.0-0.8) K/uL Eos # (Auto) (0.0-0.7) K/uL Baso # (Auto) (0.0-0.1) K/uL Nucleated RBC % /100WBC Nucleated RBCs # K/uL Sodium (136-145) mmol/L Potassium (3.5-5.1) mmol/L Chloride (98-107) mmol/L Carbon Dioxide (21.0-32.0) mmol/L BUN (7.0-18.0) mg/dL Creatinine (0.6-1.0) mg/dL Est Cr Clr Drug Dosing mL/min Estimated GFR (MDRD) ml/min Glucose (74-106) mg/dL Calcium (8.5-10.1) mg/dL Magnesium (1.8-2.4) mg/dL Total Bilirubin (0.2-1.0) mg/dL AST (15-37) IU/L ALT (14-63) IU/L Alkaline Phosphatase (46-116) U/L Total Protein (6.4-8.2) g/dL Albumin (3.4-5.0) g/dL Globulin (2.6-4.0) g/dL Albumin/Globulin Ratio (0.9-1.6) TSH 3rd Generation (0.36-3.74) uIU/mL Urine Color Urine Appearance Urine pH (5.0-8.0) Ur Specific [place] (1.001-1.035) Urine Protein (NEGATIVE) mg/dL Urine Glucose (UA) (NEGATIVE) mg/dL Urine Ketones (NEGATIVE) mg/dL Urine Occult Blood (NEGATIVE) Urine Nitrite (NEGATIVE) Urine Bilirubin (NEGATIVE) Urine Urobilinogen (<2.0) EU/dL Ur Leukocyte Esterase (NEGATIVE) Urine RBC (0-2/HPF) Urine WBC (0-5/HPF) Ur Epithelial Cells (NONE-FEW) Urine Bacteria (NEGATIVE) Urine Mucus (NONE-MOD) Salicylates (0-20) mg/dL Urine Opiates Screen NEGATIVE (NEGATIVE) Ur Oxycodone Screen NEGATIVE (NEGATIVE) Urine Methadone Screen NEGATIVE (NEGATIVE) Acetaminophen ug/mL Ur Barbiturates Screen NEGATIVE (NEGATIVE) Ur Phencyclidine Scrn NEGATIVE (NEGATIVE) Ur Amphetamine Screen POSITIVE (NEGATIVE) U Methamphetamines Scrn POSITIVE (NEGATIVE) U Benzodiazepines Scrn NEGATIVE (NEGATIVE) U Cocaine Metab Screen NEGATIVE (NEGATIVE) Ethyl Alcohol mg/dL Meds: Medications Discontinued Medications Generic Name Dose Route Start Last Admin Trade Name Trinity PRN Reason Stop Dose Admin Haloperidol 5 mg 01/16/20 18:56 Haldol PO 01/16/20 18:57 ONETIME ONE Lorazepam 1 mg 01/16/20 18:56 Ativan PO 01/16/20 18:57 ONETIME ONE Departure - Departure Time of Disposition: 18:58 Disposition: DC/Tfer to Psych Hosp/Unit 65 Condition: Good Clinical Impression: Bipolar 1 disorder - Discharge Information Referrals: PCP,None [Primary Care Provider] - Forms: ED Department Discharge Sepsis Event Note (ED) - Evaluation Sepsis Screening Result: No Definite Risk - Focused Exam Vital Signs: Vital Signs Temp Pulse Resp BP Pulse Ox 01/16/20 16:21 36.1 C 84 16 143/75 H 95 - My Orders Last 24 Hours: My Active Orders 01/16/20 17:03 EKG Documentation Completion [RC] STAT 01/16/20 17:44 DRUG SCREEN, URINE [URCHEM] Stat 01/16/20 18:55 CORONAVIRUS COVID-19 PCR PHL Stat - Assessment/Plan Last 24 Hours: My Active Orders 01/16/20 17:03 EKG Documentation Completion [RC] STAT 01/16/20 17:44 DRUG SCREEN, URINE [URCHEM] Stat 01/16/20 18:55 CORONAVIRUS COVID-19 PCR PHL Stat
[2020-01-16] MEDS ORDERED: LORazepam 1 MG Tab PO ONE (18:56)
[2020-01-16] MEDS ORDERED: Haloperidol 5 MG Tab PO ONE (18:56)
[2020-01-16 21:01] VITALS: BP 101/75; PULSE 101
== END 2020-01-16 21:13 ==
LOC: MW.ED 15:46
DX: F31.9 Bipolar disorder, unspecified (principal); I10 Essential (primary) hypertension; J45.909 Unspecified asthma, uncomplicated; F41.9 Anxiety disorder, unspecified; E11.9 Type 2 diabetes mellitus without complications; E66.9 Obesity, unspecified; Z68.41 Body mass index [BMI] 40.0-44.9, adult; Z20.828 Contact with and (suspected) exposure to other viral communicable diseases; Z88.8 Allergy status to other drugs, medicaments and biological substances; Z88.2 Allergy status to sulfonamides; Z88.1 Allergy status to other antibiotic agents; Z91.048 Other nonmedicinal substance allergy status; Z79.899 Other long term (current) drug therapy
CPT/HCPCS: 36415; 80053; 80305-QW; 80307; 81001; 83735; 84443; 85025; 93005; 93010; 99281; 99284-25; U0002

== ENCOUNTER 2020-02-09 11:19 | Emergency (ER) | payer MEDICAID, MEDICARE ==
--- NOTE | 2020-02-09 11:54 | EDM.PDOC ---
ED HPI GENERAL MEDICAL PROBLEM - General Chief Complaint: Behavioral/Psych Stated Complaint: COUGHING SOB BODY PAIN Time Seen by Provider: 02/09/20 11:24 Source of Information: Reports: Patient History Limitations: Reports: No Limitations - History of Present Illness INITIAL COMMENTS - FREE TEXT/NARRATIVE: 49-year-old female past medical history of schizophrenia, multiple psychiatric admissions for suicidal ideation and hallucinations, COPD, bronchitis presents for cough, rib pain, body aches, not feeling well since discharge from psychiatric hospital 4 days ago. Patient states she is here to "review my blood work". Notes that symptoms started shortly after being discharged from the psychiatric hospital. Denies fevers, notes mild shortness of breath. Notes that she has a chronic cough secondary to her chronic bronchitis, but this seems worse. Notes throat pain. Patient specifically denies plan to harm herself, thoughts of harming or hurting anybody else. She notes that she has chronic thoughts of hurting herself, but is being treated for her psychiatric problems, and denies having an active plan. She does not state that she wants to harm herself today. She states that she is here for the aforementioned medical complaints. generalized Pain Score (Numeric/FACES): 10 - Related Data Allergies Allergy/AdvReac Type Severity Reaction Status Date / Time carbamazepine [From Tegretol] Allergy Other Verified 02/09/20 12:42 sulfamethoxazole Allergy Hives Verified 02/09/20 12:42 [From Bactrim] trimethoprim [From Bactrim] Allergy Hives Verified 02/09/20 12:42 seasonal Allergy Itching Uncoded 02/09/20 12:42 Home Meds: Home Meds Montelukast [Singulair] 10 mg PO BEDTIME 05/09/15 [History] haloperidoL [Haloperidol] 5 mg PO DAILY 05/09/15 [History] hydrOXYzine HCL [Atarax] 10 mg PO DAILY 05/09/15 [History] ziprasidone HCL [Ziprasidone HCl] 60 mg PO DAILY 05/09/15 [History] Losartan [Cozaar] 50 mg PO DAILY 11/23/17 [History] Nabumetone 500 mg PO DAILY 11/23/17 [History] Topiramate 50 mg PO BID 11/23/17 [History] Venlafaxine [Effexor] 37.5 mg PO DAILY 11/23/17 [History] methylPREDNISolone [Medrol] 4 mg PO ASDIRECTED #1 dosepk 11/23/17 [Rx] Azithromycin [Zithromax] 250 mg PO DAILY 5 Days #6 tab 02/09/20 [Rx] predniSONE [Prednisone] 40 mg PO DAILY 5 Days #10 tablet 02/09/20 [Rx] Past Medical History HEENT History: Reports: Impaired Vision Cardiovascular History: Reports: Hypertension, SOB on Exertion, Syncope Respiratory History: Reports: Asthma, Bronchitis, Recurrent Gastrointestinal History: Reports: Other (See Below) Other Gastrointestinal History: abdominal abscess Genitourinary History: Reports: None Other Genitourinary History: cystitis [employer] History: Reports: None Musculoskeletal History: Reports: Arthritis, Back Pain, Chronic, Other (See Below) Other Musculoskeletal History: tendonitis Neurological History: Reports: None, Seizure, Vertigo Psychiatric History: Reports: Addiction, Anxiety, Bipolar, Depression Endocrine/Metabolic History: Reports: Diabetes, Type II, Other (See Below), Obesity/BMI 30+ Other Endocrine/Metabolic History: states borderline DM Hematologic History: Reports: None Immunologic History: Reports: None Oncologic (Cancer) History: Reports: None Dermatologic History: Reports: None Other Dermatologic History: cellulitis - Infectious Disease History Infectious Disease History: Reports: Chicken Pox - Past Surgical History GI Surgical History: Reports: Cholecystectomy, Other (See Below) Musculoskeletal Surgical History: Reports: Other (See Below) Dermatological Surgical History: Reports: Other (See Below) Social & Family History - Family History Family Medical History: Noncontributory - Caffeine Use Caffeine Use: Reports: Coffee, Other, Soda Other Caffeine Use: caffeine pills Caffeine Use Comment: 4cups/day ED ROS GENERAL - Review of Systems Review Of Systems: Comprehensive ROS is negative, except as noted in HPI. ED EXAM, GENERAL - Physical Exam Exam: See Below Exam Limited By: No Limitations General Appearance: Alert, WD/WN, No Apparent Distress Ears: Normal External Exam Nose: Normal Inspection Throat/Mouth: Normal Inspection, Normal Oropharynx, Normal Voice, No Airway Compromise Head: Atraumatic, Normocephalic Neck: Normal Inspection Respiratory/Chest: No Respiratory Distress, Lungs Clear, Normal Breath Sounds, No Accessory Muscle Use Cardiovascular: Normal Peripheral Pulses, Regular Rate, Rhythm Extremities: Normal Inspection Neurological: Alert Psychiatric: Normal Affect, Normal Mood Skin Exam: Warm, Dry, Intact, Normal Color Course - Vital Signs Last Recorded V/S: Last Vital Signs Temp 98.2 F 02/09/20 11:32 Pulse 88 02/09/20 11:32 Resp 18 02/09/20 11:32 BP 134/93 H 02/09/20 11:32 Pulse Ox 98 02/09/20 11:32 - Orders/Labs/Meds Orders: Active Orders 24 hr Category Date Time Status CORONAVIRUS COVID-19 PCR [facility] Stat Lab 02/09/20 13:30 Received Labs: Laboratory Tests 02/09/20 Range/Units 13:30 SARS CoV-2 RNA Rapid KINA NEGATIVE (NEGATIVE) - Re-Assessments/Exams Free Text/Narrative Re-Assessment/Exam: 02/09/20 11:54 We will get COVID-19 testing, chest x-ray. Will follow up results and disposition accordingly. 02/09/20 12:51 X-ray is remarkable for possible developing infiltrate. We will follow-up Covid testing for disposition. 02/09/20 14:08 COVID-19 testing is negative. Will discharge patient with prednisone and azithromycin for developing infiltrate and possible COPD exacerbation. Will recommend follow-up with PMD Departure - Departure Time of Disposition: 14:08 Disposition: Home, Self-Care 01 Condition: Good Clinical Impression: Bronchitis, COPD exacerbation - Discharge Information Prescriptions: predniSONE [Prednisone] 40 mg PO DAILY 5 Days #10 tablet Instructions: Chronic Obstructive Pulmonary Disease Exacerbation, [id number] Referrals: Braeden Choudhury MD [Primary Care Provider] - Forms: ED Department Discharge Additional Instructions: The following information is given to patients seen in the emergency department who are being discharged to home. This information is to outline your options for follow-up care. We provide all patients seen in our emergency department with a follow-up referral. The need for follow-up, as well as the timing and circumstances, are variable depending upon the specifics of your emergency department visit. If you don't have a primary care physician on staff, we will provide you with a referral. We always advise you to contact your personal physician following an emergency department visit to inform them of the circumstance of the visit and for follow-up with them and/or the need for any referrals to a consulting specialist. The emergency department will also refer you to a specialist when appropriate. This referral assures that you have the opportunity for follow-up care with a specialist. All of these measure are taken in an effort to provide you with optimal care, which includes your follow-up. Under all circumstances we always encourage you to contact your private physician who remains a resource for coordinating your care. When calling for follow-up care, please make the office aware that this follow-up is from your recent emergency room visit. If for any reason you are refused follow-up, please contact the [facility] Emergency Department at and asked to speak to the emergency department charge nurse. Please follow up with your primary care physician. If you do not have a primary care physician, see below: [facility] [address] [place] [id number] [facility] [address] [place] [id number] Sepsis Event Note (ED) - Focused Exam Vital Signs: Vital Signs Temp Pulse Resp BP Pulse Ox 02/09/20 11:32 98.2 F 88 18 134/93 H 98 - My Orders Last 24 Hours: My Active Orders 02/09/20 13:30 CORONAVIRUS COVID-19 PCR [facility] Stat - Assessment/Plan Last 24 Hours: My Active Orders 02/09/20 13:30 CORONAVIRUS COVID-19 PCR [facility] Stat
--- NOTE | 2020-02-09 12:29 | CR ---
Indication: Cough Comparison: Single-view chest nerve November 23, 2017 Technique: Single AP view chest Findings: There is hyperinflation and chronic interstitial change. There is patchy airspace opacity within the right greater than left lung bases which may represent developing infiltrate. The cardiomediastinal silhouette is within normal limits. The bony thorax is grossly intact. Impression: Hyperinflation with questionable developing basilar airspace opacity in the right greater than left lung bases likely representing developing infiltrate. Dictated by Robles Leyva MD @ Feb 09 2020 12:27PM Signed by Dr. Robles Leyva @ Feb 09 2020 12:28PM
[2020-02-09 12:42] VITALS: BP 134/93; PULSE 88
== END 2020-02-09 14:27 | disposition home or self-care (01) ==
LOC: MW.ED 11:19
DX: J45.901 Unspecified asthma with (acute) exacerbation (principal); I10 Essential (primary) hypertension; M19.90 Unspecified osteoarthritis, unspecified site; F41.9 Anxiety disorder, unspecified; F31.9 Bipolar disorder, unspecified; E11.9 Type 2 diabetes mellitus without complications; Z20.828 Contact with and (suspected) exposure to other viral communicable diseases; Z79.899 Other long term (current) drug therapy; Z88.2 Allergy status to sulfonamides; Z88.8 Allergy status to other drugs, medicaments and biological substances
CPT/HCPCS: 71045; 99285; U0002

== ENCOUNTER 2020-05-31 13:41 | Emergency (ER) | payer MEDICARE ==
--- NOTE | 2020-05-31 14:12 | EDM.PDOC ---
ED HPI GENERAL MEDICAL PROBLEM - General Chief Complaint: General Stated Complaint: NEEDS FOOD Time Seen by Provider: 05/31/20 13:49 - History of Present Illness INITIAL COMMENTS - FREE TEXT/NARRATIVE: 49-year-old female with a history of COPD and a history of schizophrenia and bipolar disorder who is presenting requesting prednisone for her lungs and pain medication. She reports that she has chronic pain and has been on Tylenol threes in the past. She states that the air in her apartment is not good and the weather is also harming her breathing. She states that she is trying to get out of town she does not want to follow-up with her primary care provider anymore. She states that she is being persecuted and is somewhat tangential. She adamantly denies HI or SI she denies any auditory or visual hallucinations. She states that she just wants some of her breathing and something for her pain. general Pain Score (Numeric/FACES): 7 - Related Data Allergies Allergy/AdvReac Type Severity Reaction Status Date / Time carbamazepine [From Tegretol] Allergy Other Verified 05/31/20 13:58 sulfamethoxazole Allergy Hives Verified 05/31/20 13:58 [From Bactrim] trimethoprim [From Bactrim] Allergy Hives Verified 05/31/20 13:58 seasonal Allergy Itching Uncoded 05/31/20 13:58 Home Meds: Home Meds Montelukast [Singulair] 10 mg PO BEDTIME 05/09/15 [History] haloperidoL [Haloperidol] 5 mg PO DAILY 05/09/15 [History] hydrOXYzine HCL [Atarax] 10 mg PO DAILY 05/09/15 [History] ziprasidone HCL [Ziprasidone HCl] 60 mg PO DAILY 05/09/15 [History] Losartan [Cozaar] 50 mg PO DAILY 11/23/17 [History] Nabumetone 500 mg PO DAILY 11/23/17 [History] Topiramate 50 mg PO BID 11/23/17 [History] Venlafaxine [Effexor] 37.5 mg PO DAILY 11/23/17 [History] methylPREDNISolone [Medrol] 4 mg PO ASDIRECTED #1 dosepk 11/23/17 [Rx] Azithromycin [Zithromax] 250 mg PO DAILY 5 Days #6 tab 02/09/20 [Rx] predniSONE [Prednisone] 40 mg PO DAILY 5 Days #10 tablet 02/09/20 [Rx] predniSONE [Prednisone] 20 mg PO DAILY 5 Days #5 tablet 05/31/20 [Rx] Past Medical History HEENT History: Reports: Impaired Vision Cardiovascular History: Reports: Hypertension, SOB on Exertion, Syncope Respiratory History: Reports: Asthma, Bronchitis, Recurrent Gastrointestinal History: Reports: Other (See Below) Other Gastrointestinal History: abdominal abscess Genitourinary History: Reports: None Other Genitourinary History: cystitis [employer]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 Musculoskeletal History: Reports: Arthritis, Back Pain, Chronic, Other (See Below) Other Musculoskeletal History: tendonitis Neurological History: Reports: None, Seizure, Vertigo Psychiatric History: Reports: Addiction, Anxiety, Bipolar, Depression Endocrine/Metabolic History: Reports: Diabetes, Type II, Other (See Below), Obesity/BMI 30+ Other Endocrine/Metabolic History: states borderline DM Hematologic History: Reports: None Immunologic History: Reports: None Oncologic (Cancer) History: Reports: None Dermatologic History: Reports: None Other Dermatologic History: cellulitis - Infectious Disease History Infectious Disease History: Reports: Chicken Pox - Past Surgical History HEENT Surgical History: Reports: None Cardiovascular Surgical History: Reports: None Respiratory Surgical History: Reports: None GI Surgical History: Reports: Cholecystectomy, Other (See Below) Other GI Surgeries/Procedures: surgical removal of abdominal abscess Female Surgical History: Reports: None Endocrine Surgical History: Reports: None Musculoskeletal Surgical History: Reports: Other (See Below) Other Musculoskeletal Surgeries/Procedures:: left knee surgery Dermatological Surgical History: Reports: Other (See Below) Social & Family History - Family History Family Medical History: No Pertinent Family History - Tobacco Use Tobacco Use Status *Q: Current Every Day Tobacco User Years of Tobacco use: 35 Packs/Tins Daily: 1 - Caffeine Use Caffeine Use: Reports: Coffee, Other, Soda Other Caffeine Use: caffeine pills Caffeine Use Comment: 4cups/day - Recreational Drug Use Recreational Drug Use: No ED ROS GENERAL - Review of Systems Review Of Systems: See Below Free Text/Narrative/Comment: General: No fever. Eyes: No vision problems. ENT: No sore throat. Neck: No neck stiffness. Respiratory: Per HPI Cardiac: No chest pain. Gastrointestinal: No nausea, vomiting or abdominal pain. Urinary: No dysuria. Musculoskeletal: Per HPI Neurologic: No headache. ED EXAM, GENERAL - Physical Exam Exam: See Below Free Text/Narrative:: General Appearance: No acute distress, appears comfortable Skin: No rash HEENT: Normocephalic/atraumatic, sclera anicteric, mucous membranes moist Neck: Normal range of motion Chest and Lungs: Distant breath sounds throughout with monophasic end expiratory wheezing no crackles no rhonchi Cardiovascular: Minimally tachycardic rate regular rhythm intact distal perfusion Abdomen: Soft, non-tender Back: Normal Musculoskeletal: No edema or tenderness Neurologic: Awake, alert, no obvious deficits, moving all extremities Psychiatric: Mild psychomotor agitation with rapid but interruptible speech denies HI denies SI disorganized at the paragraph level thoughts future oriented goal-directed Course - Vital Signs Last Recorded V/S: Last Vital Signs Temp 97.5 F 05/31/20 13:54 Pulse 106 H 05/31/20 13:54 Resp 19 05/31/20 13:54 BP 147/108 H 05/31/20 13:54 Pulse Ox 95 05/31/20 13:54 Departure - Departure Time of Disposition: 14:08 Disposition: Home, Self-Care 01 Condition: Good Clinical Impression: COPD (chronic obstructive pulmonary disease), COPD exacerbation, Bipolar 1 disorder - Discharge Information *PRESCRIPTION DRUG MONITORING PROGRAM REVIEWED*: Not Applicable *COPY OF PRESCRIPTION DRUG MONITORING REPORT IN PATIENT EDUARDO: Not Applicable Prescriptions: predniSONE [Prednisone] 20 mg PO DAILY 5 Days #5 tablet Instructions: Yun, COPD and Physical Activity Forms: ED Department Discharge Additional Instructions: A prescription for 5 days of prednisone has been sent to the pharmacy for your breathing. As we discussed, we cannot dispense pain medication for chronic pain through the ER. I strongly encourage you to follow-up with one of the primary care clinics listed below. I am also concerned about your mental health. I am concerned that you may be somewhat manic. I encourage you to follow-up with somebody other resources listed. [facility] - [facility] [address] [place] [id number] [facility] [address] [place] [id number] The following information is given to patients seen in the emergency department who are being discharged to home. This information is to outline your options for follow-up care. We provide all patients seen in our emergency department with a follow-up referral. The need for follow-up, as well as the timing and circumstances, are variable depending upon the specifics of your emergency department visit. If you don't have a primary care physician on staff, we will provide you with a referral. We always advise you to contact your personal physician following an emergency department visit to inform them of the circumstance of the visit and for follow-up with them and/or the need for any referrals to a consulting specialist. The emergency department will also refer you to a specialist when appropriate. This referral assures that you have the opportunity for follow-up care with a specialist. All of these measure are taken in an effort to provide you with optimal care, which includes your follow-up. Under all circumstances we always encourage you to contact your private physician who remains a resource for coordinating your care. When calling for follow-up care, please make the office aware that this follow-up is from your recent emergency room visit. If for any reason you are refused follow-up, please contact the Emergency Department at and asked to speak to the emergency department charge nurse. Sepsis Event Note (ED) - Evaluation Sepsis Screening Result: No Definite Risk - Focused Exam Vital Signs: Vital Signs Temp Pulse Resp BP Pulse Ox 05/31/20 13:54 97.5 F 106 H 19 147/108 H 95 - Assessment/Plan Assessment:: 49-year-old female with history of COPD as well as schizophrenia and bipolar disorder who is presenting with signs and symptoms most consistent with hypomania/yun but no HI no SI well groomed and well kept. She is mildly disorganized. However, I do not believe that she is due to pain able at this time she does not have insight into her disease process and does not wish any psychiatric treatment or to discuss any of her psychiatric history. We discussed that I cannot provide pain medication for chronic pain through the ER and she expresses understanding of this. She requests some food before she leaves and she was provided with a turkey sandwich. Have sent a prescription for prednisone to the pharmacy she does have wheezing on exam she refuses inhaler. She states she has inhalers at home.
[2020-05-31 14:47] VITALS: BP 132/85; PULSE 95
[2020-06-02] MEDS ORDERED: OLANZapine 5 MG Tab.DIS PO ONE (11:30)
== END 2020-05-31 14:30 | disposition home or self-care (01) ==
LOC: MW.ED 13:41
DX: J44.1 Chronic obstructive pulmonary disease with (acute) exacerbation (principal); F31.9 Bipolar disorder, unspecified; I10 Essential (primary) hypertension; J45.909 Unspecified asthma, uncomplicated; E11.9 Type 2 diabetes mellitus without complications; E66.9 Obesity, unspecified; Z68.29 Body mass index [BMI] 29.0-29.9, adult; Z88.8 Allergy status to other drugs, medicaments and biological substances; Z88.2 Allergy status to sulfonamides; Z88.1 Allergy status to other antibiotic agents; Z91.048 Other nonmedicinal substance allergy status; Z79.899 Other long term (current) drug therapy; Z72.0 Tobacco use
CPT/HCPCS: 99283

== ENCOUNTER 2020-06-02 10:52 | Emergency (ER) | payer MEDICARE ==
[2020-06-02 11:00] VITALS: BP 156/107; PULSE 89
[2020-06-02] MEDS ORDERED: OLANZapine 5 MG Tab.DIS PO ONE ×2 (11:18→11:30)
--- NOTE | 2020-06-02 11:21 | EDM.PDOCBH ---
ED HPI GENERAL MEDICAL PROBLEM - General Chief Complaint: Behavioral/Psych Stated Complaint: SUICIDAL IDEATION Time Seen by Provider: 06/02/20 10:53 Source of Information: Reports: Patient History Limitations: Reports: No Limitations - History of Present Illness INITIAL COMMENTS - FREE TEXT/NARRATIVE: 49-year-old female history of bipolar and schizophrenia presents with acute p sychosis. Patient denies fever, chills, headache, chest pain, shortness of breath, abdominal pain, focal numbness or weakness, saddle or homicidal or auditory or visual hallucination. ROS: A 10-point review of systems, other than pertinent positives and negatives as stated per HPI, is otherwise negative Past medical history: No additional pertinent history Past Surgical history: No additional pertinent history Social history: No additional pertinent history Family history: No additional pertinent history PHYSICAL EXAM General: AOx4, GCS = 15, agitated, manic, no distress HEENT: dry mucous membrane Neck: supple, no meningismus, no Kernig or Brudzinski Cardiac: S1S2 RRR Respiratory: CTAB, no crackles or rales, no wheezing Abdomen: Soft, nontender, no rebound or guarding, nondistended, no pulsatile mass. Back: nontender Musculoskeletal: NVI distally, no deformity Neuro: No focal deficits Psych: Agitated, manic, tangential speech. Denies SI/HI/VH/AH. - Related Data Allergies Allergy/AdvReac Type Severity Reaction Status Date / Time carbamazepine [From Tegretol] Allergy Other Verified 06/02/20 11:00 sulfamethoxazole Allergy Hives Verified 06/02/20 11:00 [From Bactrim] trimethoprim [From Bactrim] Allergy Hives Verified 06/02/20 11:00 seasonal Allergy Itching Uncoded 06/02/20 11:00 Home Meds: Home Meds Montelukast [Singulair] 10 mg PO BEDTIME 05/09/15 [History] haloperidoL [Haloperidol] 5 mg PO DAILY 05/09/15 [History] hydrOXYzine HCL [Atarax] 10 mg PO DAILY 05/09/15 [History] ziprasidone HCL [Ziprasidone HCl] 60 mg PO DAILY 05/09/15 [History] Losartan [Cozaar] 50 mg PO DAILY 11/23/17 [History] Nabumetone 500 mg PO DAILY 11/23/17 [History] Topiramate 50 mg PO BID 11/23/17 [History] Venlafaxine [Effexor] 37.5 mg PO DAILY 11/23/17 [History] methylPREDNISolone [Medrol] 4 mg PO ASDIRECTED #1 dosepk 11/23/17 [Rx] Azithromycin [Zithromax] 250 mg PO DAILY 5 Days #6 tab 02/09/20 [Rx] predniSONE [Prednisone] 40 mg PO DAILY 5 Days #10 tablet 02/09/20 [Rx] predniSONE [Prednisone] 20 mg PO DAILY 5 Days #5 tablet 05/31/20 [Rx] Past Medical History HEENT History: Reports: Impaired Vision Cardiovascular History: Reports: Hypertension, SOB on Exertion, Syncope Respiratory History: Reports: Asthma, Bronchitis, Recurrent Gastrointestinal History: Reports: Other (See Below) Other Gastrointestinal History: abdominal abscess Genitourinary History: Reports: None Other Genitourinary History: cystitis 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 Musculoskeletal History: Reports: Arthritis, Back Pain, Chronic, Other (See Below) Other Musculoskeletal History: tendonitis Neurological History: Reports: None, Seizure, Vertigo Psychiatric History: Reports: Addiction, Anxiety, Bipolar, Depression Endocrine/Metabolic History: Reports: Diabetes, Type II, Other (See Below), Obesity/BMI 30+ Other Endocrine/Metabolic History: states borderline DM Hematologic History: Reports: None Immunologic History: Reports: None Oncologic (Cancer) History: Reports: None Dermatologic History: Reports: None Other Dermatologic History: cellulitis - Infectious Disease History Infectious Disease History: Reports: Chicken Pox - Past Surgical History HEENT Surgical History: Reports: None Cardiovascular Surgical History: Reports: None Respiratory Surgical History: Reports: None GI Surgical History: Reports: Cholecystectomy, Other (See Below) Other GI Surgeries/Procedures: surgical removal of abdominal abscess Female Surgical History: Reports: None Endocrine Surgical History: Reports: None Musculoskeletal Surgical History: Reports: Other (See Below) Other Musculoskeletal Surgeries/Procedures:: left knee surgery Dermatological Surgical History: Reports: Other (See Below) Social & Family History - Family History Family Medical History: No Pertinent Family History - Tobacco Use Tobacco Use Status *Q: Never Tobacco User - Caffeine Use Caffeine Use: Reports: Coffee, Other, Soda Other Caffeine Use: caffeine pills Caffeine Use Comment: 4cups/day - Recreational Drug Use Recreational Drug Use: Yes Recreational Drug Type: Reports: Methamphetamine ED ROS GENERAL - Review of Systems Review Of Systems: See Below (see dictation) ED EXAM, BEHAVIORAL HEALTH - Physical Exam Exam: See Below (see dictation) COURSE, BEHAVIORAL HEALTH COMP - Course Vital Signs: Last Vital Signs Temp 97.8 F 06/02/20 10:57 Pulse 89 06/02/20 10:57 Resp 16 06/02/20 10:57 BP 156/107 H 06/02/20 10:57 Pulse Ox 97 06/02/20 10:57 Orders, Labs, Meds: Active Orders 24 hr Category Date Time Status EKG Documentation Completion [RC] STAT Care 06/02/20 11:21 Active UA RFX LUIS AND CULT IF INDIC [URIN] Stat Lab 06/02/20 11:21 Ordered UA W/MICROSCOPIC [URIN] Stat Lab 06/02/20 11:21 Ordered Laboratory Tests 06/02/20 06/02/20 06/02/20 Range/Units 11:33 11:33 11:50 WBC 11.69 H (4.0-11.0) K/uL RBC 5.15 (4.30-5.90) M/uL Hgb 16.7 H (12.0-16.0) g/dL Hct 48.3 H (36.0-46.0) % MCV 93.8 (80.0-98.0) fL MCH 32.4 H (27.0-32.0) pg MCHC 34.6 (31.0-37.0) g/dL RDW Std Deviation 43.0 (28.0-62.0) fl RDW Coeff of Keely 13 (11.0-15.0) % Plt Count 270 (150-400) K/uL MPV 10.00 (7.40-12.00) fL Neut % (Auto) 61.7 (48.0-80.0) % Lymph % (Auto) 32.1 (16.0-40.0) % [place] % (Auto) 5.5 (0.0-15.0) % Eos % (Auto) 0.5 (0.0-7.0) % Baso % (Auto) 0.2 (0.0-1.5) % Neut # (Auto) 7.2 H (1.4-5.7) K/uL Lymph # (Auto) 3.8 H (0.6-2.4) K/uL [place] # (Auto) 0.6 (0.0-0.8) K/uL Eos # (Auto) 0.1 (0.0-0.7) K/uL Baso # (Auto) 0.0 (0.0-0.1) K/uL Nucleated RBC % 0.0 /100WBC Nucleated RBCs # 0 K/uL Sodium 144 (136-145) mmol/L Potassium 3.8 (3.5-5.1) mmol/L Chloride 107 (98-107) mmol/L Carbon Dioxide 24.8 (21.0-32.0) mmol/L BUN 13 (7.0-18.0) mg/dL Creatinine 0.8 (0.6-1.0) mg/dL Est Cr Clr Drug Dosing 66.54 mL/min Estimated GFR (MDRD) > 60.0 ml/min Glucose 116 H (74-106) mg/dL Calcium 9.4 (8.5-10.1) mg/dL Magnesium 2.2 (1.8-2.4) mg/dL Total Bilirubin 0.2 (0.2-1.0) mg/dL AST 12 L (15-37) IU/L ALT 22 (14-63) IU/L Alkaline Phosphatase 69 (46-116) U/L Total Protein 7.3 (6.4-8.2) g/dL Albumin 3.9 (3.4-5.0) g/dL Globulin 3.4 (2.6-4.0) g/dL Albumin/Globulin Ratio 1.1 (0.9-1.6) TSH 3rd Generation 2.52 (0.36-3.74) uIU/mL Salicylates 3.5 (0-20) mg/dL Urine Opiates Screen NEGATIVE (NEGATIVE) Ur Oxycodone Screen NEGATIVE (NEGATIVE) Urine Methadone Screen NEGATIVE (NEGATIVE) Acetaminophen <2.0 ug/mL Ur Barbiturates Screen NEGATIVE (NEGATIVE) Ur Phencyclidine Scrn NEGATIVE (NEGATIVE) Ur Amphetamine Screen POSITIVE (NEGATIVE) U Methamphetamines Scrn POSITIVE (NEGATIVE) U Benzodiazepines Scrn NEGATIVE (NEGATIVE) U Cocaine Metab Screen NEGATIVE (NEGATIVE) U Marijuana (THC) Screen NEGATIVE (NEGATIVE) Ethyl Alcohol < 3.0 mg/dL Medications Discontinued Medications Generic Name Dose Route Start Last Admin Trade Name Freq PRN Reason Stop Dose Admin Olanzapine 10 mg 06/02/20 11:18 06/02/20 11:55 Zyprexa Zydis PO 06/02/20 11:19 Not Given ONETIME ONE Olanzapine 10 mg 06/02/20 11:30 06/02/20 11:55 Zyprexa Zydis PO 06/02/20 11:31 10 mg ONETIME ONE Administration Re-Assessment/Re-Exam: 1245: [facility] assessed the patient in the ER, does not think patient require legal hold, she is not suicidal or homicidal or hallucinations or psychosis. They are very familiar with her, states this is her baseline mentation. Patient is declining to undergo psychiatric medication for management of her. 1319: She eloped from the ER. Departure - Departure Time of Disposition: 13:19 Disposition: Eloped 07 Condition: Good Clinical Impression: Bipolar 1 disorder, mixed, History of schizophrenia, Drug abuse, Amphetamine abuse, Methamphetamine abuse - Discharge Information *PRESCRIPTION DRUG MONITORING PROGRAM REVIEWED*: Not Applicable *COPY OF PRESCRIPTION DRUG MONITORING REPORT IN PATIENT EDUARDO: Not Applicable Instructions: Yun, Managing Bipolar Disorder, Amphetamines Use Disorder, Substance Use Disorder and Mental Illness, Methamphetamines Use Disorder Referrals: Braeden Choudhury MD [Primary Care Provider] - 3 Days Forms: ED Department Discharge Additional Instructions: The need for follow-up, as well as the timing and circumstances, are variable depending upon the specifics of your emergency department visit. If you don't have a primary care physician on staff, we will provide you with a referral. We always advise you to contact your personal physician following an emergency department visit to inform them of the circumstance of the visit and for follow-up with them and/or the need for any referrals to a consulting specialist. The emergency department will also refer you to a specialist when appropriate. This referral assures that you have the opportunity for follow-up care with a specialist. All of these measure are taken in an effort to provide you with optimal care, which includes your follow-up. Under all circumstances we always encourage you to contact your private physician who remains a resource for coordinating your care. When calling for follow-up care, please make the office aware that this follow-up is from your recent emergency room visit. If for any reason you are refused follow-up, please contact the [facility] Emergency Department at and asked to speak to the emergency department charge nurse. If you do not have a primary care doctor, please follow up with the clinics below within 3-5 days. [facility] [address] [place] [id number] [facility] [address] [place] [id number] Sepsis Event Note (ED) - Evaluation Sepsis Screening Result: No Definite Risk - Focused Exam Vital Signs: Vital Signs Temp Pulse Resp BP Pulse Ox 06/02/20 10:57 97.8 F 89 16 156/107 H 97 - My Orders Last 24 Hours: My Active Orders 06/02/20 11:21 EKG Documentation Completion [RC] STAT UA RFX LUIS AND CULT IF INDIC [URIN] Stat UA W/MICROSCOPIC [URIN] Stat - Assessment/Plan Last 24 Hours: My Active Orders 06/02/20 11:21 EKG Documentation Completion [RC] STAT UA RFX LUIS AND CULT IF INDIC [URIN] Stat UA W/MICROSCOPIC [URIN] Stat
[2020-06-02 12:39] LABS: ACETAMINOPHEN <2.0 ug/mL; BLOOD UREA NITROGEN,BUN 13 mg/dL (7.0-18.0); CARBON DIOXIDE,CO2 24.8 mmol/L (21.0-32.0); CHLORIDE,CL 107 mmol/L (98-107); GLUCOSE RANDOM 116 mg/dL (74-106); POTASSIUM,K 3.8 mmol/L (3.5-5.1); SODIUM,NA 144 mmol/L (136-145)
== END 2020-06-02 13:10 | disposition left against medical advice (07) ==
LOC: MW.ED 10:52
DX: F31.60 Bipolar disorder, current episode mixed, unspecified (principal); F20.9 Schizophrenia, unspecified; F15.10 Other stimulant abuse, uncomplicated; I10 Essential (primary) hypertension; J45.909 Unspecified asthma, uncomplicated; R56.9 Unspecified convulsions; E11.9 Type 2 diabetes mellitus without complications; E66.9 Obesity, unspecified; Z88.8 Allergy status to other drugs, medicaments and biological substances; Z88.2 Allergy status to sulfonamides; Z88.1 Allergy status to other antibiotic agents; Z68.27 Body mass index [BMI] 27.0-27.9, adult
CPT/HCPCS: 36415; 80053; 80143; 80179; 80305; 80307; 83735; 84443; 85025; 93005; 99285; A9270; 93010; 99283

== ENCOUNTER 2020-07-20 10:16 | Emergency (ER) | payer MEDICAID, MEDICARE ==
[2020-07-20] MEDS ORDERED: Haloperidol 5 MG Tab PO ONE ×2 (10:44→11:10)
[2020-07-20] MEDS ORDERED: diphenhydrAMINE 50 MG Cap PO ONE (10:44)
[2020-07-20] MEDS ORDERED: Acetaminophen 325 MG Tab PO ONE (10:45)
--- NOTE | 2020-07-20 10:52 | PCM.EKG ---
#1 Interpretation EKG Date: 07/20/20 Time: 10:45 Rhythm: NSR Rate (Beats/Min): 75 [place]: Normal P-Wave: Present QRS: Normal ST-T: Normal QT: Normal Comparison: No Change (06/02/20) EKG Interpretation Comments: Sinus Rhythm
[2020-07-20 11:47] LABS: ACETAMINOPHEN <2.0 ug/mL; BLOOD UREA NITROGEN,BUN 20 mg/dL (7.0-18.0); CARBON DIOXIDE,CO2 24.1 mmol/L (21.0-32.0); CHLORIDE,CL 109 mmol/L (98-107); GLUCOSE RANDOM 119 mg/dL (74-106); POTASSIUM,K 4.1 mmol/L (3.5-5.1); SODIUM,NA 144 mmol/L (136-145)
[2020-07-20 12:05] LABS: CORONAVIRUS COVID-19 NAA NEGATIVE (NEGATIVE); INFLUENZA A NAA NEGATIVE (NEGATIVE); INFLUENZA B NAA NEGATIVE (NEGATIVE)
--- NOTE | 2020-07-20 12:41 | EDM.PDOC ---
ED HPI GENERAL MEDICAL PROBLEM - General Chief Complaint: Behavioral/Psych Stated Complaint: Medical clearance Time Seen by Provider: 07/20/20 10:19 Source of Information: Reports: Patient, Police History Limitations: Reports: No Limitations - History of Present Illness INITIAL COMMENTS - FREE TEXT/NARRATIVE: HISTORY AND PHYSICAL: History of present illness: Patient is a 49-year-old female who presents to the ED today in law enforcement custody for medical screening for a court ordered psychiatric transfer for acute psychosis and substance use. According to police paperwork, patient has a history of schizophrenia and bipolar and supposed be taking medications and is unsure if she has been taking them. Patient has been "homeless "and living out of her vehicle and making bizarre statements to family members who were concerned and filled out the court ordered psychiatric transfer which was signed by the manager drilling. Upon arrival to the ED, patient is making bizarre statements such as "they are trying to poison me in the car" and "people are spying on me" with flight of ideas and pressured speech. Patient is requesting Tylenol for "all the chronic needs" but is not expressing any symptoms. patient response to questions are with bizarre statements that do not answer the question so HPI is limited due to this. Review of systems: As per history of present illness and below otherwise all systems reviewed and negative. Past medical history: As per history of present illness and as reviewed below otherwise noncontributory. Surgical history: As per history of present illness and as reviewed below otherwise noncontributory. Social history: See social history for further information Family history: As per history of present illness and as reviewed below otherwise noncontributory. Physical exam: General: Patient is alert, pressured speech with fight of ideas but is orientated to person, place, and in no acute distress. Patient sitting comfortably on exam table. Vitals stable and reviewed by me. HEENT: Atraumatic, normocephalic, pupils equal and reactive bilaterally, negative for conjunctival pallor or scleral icterus, mucous membranes moist, TMs normal bilaterally, throat clear, neck supple, nontender, trachea midline. No drooling or trismus noted. No meningeal signs. No hot potato voice noted. Lungs: Clear to auscultation, breath sounds equal bilaterally, chest nontender. Heart: S1S2, regular rate and rhythm without overt murmur Abdomen: Soft, nondistended, nontender. Negative for masses or hepatosplenomegaly. Negative for costovertebral tenderness. Pelvis: Stable nontender. Genitourinary: Deferred. Rectal: Deferred. Skin: Intact, warm, dry. No lesions or rashes noted. Extremities: Atraumatic, negative for cords or calf pain. Neurovascular unremarkable. Neuro: Awake, alert, pressured speech with fight of ideas but is orientated to person, place. Cranial nerves II through XII unremarkable. Cerebellum unremarkable. Motor and sensory unremarkable throughout. Exam nonfocal. Notes: Upon arrival to the ED, patient is alert, in no acute distress, but does appear to be in acute psychosis making bizarre statements. She does have a history of schizophrenia and bipolar disorder and in the past chart appears as if she has had methamphetamine use in the past. Patient does have a court ordered transfer signed by the manager drilling for evaluation by psychiatry. Will perform labwork for medical screening. Augustina Scherer is at capacity [facility] and spoke to psychiatrist, Dr. Quijano, and thoroughly discussed patient's case and is accepting of transfer. Patient transferred to [facility] via law enforcement. Diagnostics: EKG, CBC, CMP, UA, urine hCG, UDS, salicylate, TSH, acetaminophen, magnesium, ethanol, COVID-19 Therapeutics: Haldol 5mg PO, Tylenol Prescription: None Impression: Acute psychosis Medical screening exam Plan: Patient discharged to law enforcement custody for transfer to [facility], Dr. Quijano, psychiatry Definitive disposition and diagnosis as appropriate pending reevaluation and review of above. - Related Data Allergies Allergy/AdvReac Type Severity Reaction Status Date / Time carbamazepine [From Tegretol] Allergy Other Verified 07/20/20 10:29 sulfamethoxazole Allergy Hives Verified 07/20/20 10:29 [From Bactrim] trimethoprim [From Bactrim] Allergy Hives Verified 07/20/20 10:29 seasonal Allergy Itching Uncoded 07/20/20 10:29 Home Meds: Home Meds Montelukast [Singulair] 10 mg PO BEDTIME 05/09/15 [History] haloperidoL [Haloperidol] 5 mg PO DAILY 05/09/15 [History] hydrOXYzine HCL [Atarax] 10 mg PO DAILY 05/09/15 [History] ziprasidone HCL [Ziprasidone HCl] 60 mg PO DAILY 05/09/15 [History] Losartan [Cozaar] 50 mg PO DAILY 11/23/17 [History] Nabumetone 500 mg PO DAILY 11/23/17 [History] Topiramate 50 mg PO BID 11/23/17 [History] Venlafaxine [Effexor] 37.5 mg PO DAILY 11/23/17 [History] methylPREDNISolone [Medrol] 4 mg PO ASDIRECTED #1 dosepk 11/23/17 [Rx] Azithromycin [Zithromax] 250 mg PO DAILY 5 Days #6 tab 02/09/20 [Rx] predniSONE [Prednisone] 40 mg PO DAILY 5 Days #10 tablet 02/09/20 [Rx] predniSONE [Prednisone] 20 mg PO DAILY 5 Days #5 tablet 05/31/20 [Rx] Past Medical History HEENT History: Reports: Impaired Vision Cardiovascular History: Reports: Hypertension, SOB on Exertion, Syncope Respiratory History: Reports: Asthma, Bronchitis, Recurrent Gastrointestinal History: Reports: Other (See Below) Other Gastrointestinal History: abdominal abscess Genitourinary History: Reports: None Other Genitourinary History: cystitis [employer] History: Reports: None Musculoskeletal History: Reports: Arthritis, Back Pain, Chronic, Other (See Below) Other Musculoskeletal History: tendonitis Neurological History: Reports: None, Seizure, Vertigo Psychiatric History: Reports: Addiction, Anxiety, Bipolar, Depression Endocrine/Metabolic History: Reports: Diabetes, Type II, Other (See Below), Obesity/BMI 30+ Other Endocrine/Metabolic History: states borderline DM Hematologic History: Reports: None Immunologic History: Reports: None Oncologic (Cancer) History: Reports: None Dermatologic History: Reports: None Other Dermatologic History: cellulitis - Infectious Disease History Infectious Disease History: Reports: Chicken Pox - Past Surgical History HEENT Surgical History: Reports: None Cardiovascular Surgical History: Reports: None Respiratory Surgical History: Reports: None GI Surgical History: Reports: Cholecystectomy, Other (See Below) Other GI Surgeries/Procedures: surgical removal of abdominal abscess Female Surgical History: Reports: None Endocrine Surgical History: Reports: None Musculoskeletal Surgical History: Reports: Other (See Below) Other Musculoskeletal Surgeries/Procedures:: left knee surgery Dermatological Surgical History: Reports: Other (See Below) Social & Family History - Family History Family Medical History: No Pertinent Family History - Tobacco Use Tobacco Use Status *Q: Current Every Day Tobacco User Years of Tobacco use: 30 Packs/Tins Daily: 1 - Caffeine Use Caffeine Use: Reports: None Other Caffeine Use: caffeine pills Caffeine Use Comment: 4cups/day - Recreational Drug Use Recreational Drug Use: No ED ROS GENERAL - Review of Systems Review Of Systems: Comprehensive ROS is negative, except as noted in HPI. ED EXAM, GENERAL - Physical Exam Exam: See Below (see dictation) Course - Vital Signs Last Recorded V/S: Last Vital Signs Temp 97 F 07/20/20 10:58 Pulse 75 07/20/20 10:58 Resp 16 07/20/20 10:58 BP 148/82 H 07/20/20 10:58 Pulse Ox 97 07/20/20 10:58 - Orders/Labs/Meds Orders: Active Orders 24 hr Category Date Time Status EKG Documentation Completion [RC] STAT Care 07/20/20 10:22 Active Labs: Laboratory Tests 07/20/20 07/20/20 07/20/20 Range/Units 10:32 10:32 10:32 WBC (4.0-11.0) K/uL RBC (4.30-5.90) M/uL Hgb (12.0-16.0) g/dL Hct (36.0-46.0) % MCV (80.0-98.0) fL MCH (27.0-32.0) pg MCHC (31.0-37.0) g/dL RDW Std Deviation (28.0-62.0) fl RDW Coeff of Keely (11.0-15.0) % Plt Count (150-400) K/uL MPV (7.40-12.00) fL Neut % (Auto) (48.0-80.0) % Lymph % (Auto) (16.0-40.0) % Stone % (Auto) (0.0-15.0) % Eos % (Auto) (0.0-7.0) % Baso % (Auto) (0.0-1.5) % Neut # (Auto) (1.4-5.7) K/uL Lymph # (Auto) (0.6-2.4) K/uL Stone # (Auto) (0.0-0.8) K/uL Eos # (Auto) (0.0-0.7) K/uL Baso # (Auto) (0.0-0.1) K/uL Nucleated RBC % /100WBC Nucleated RBCs # K/uL Sodium (136-145) mmol/L Potassium (3.5-5.1) mmol/L Chloride (98-107) mmol/L Carbon Dioxide (21.0-32.0) mmol/L BUN (7.0-18.0) mg/dL Creatinine (0.6-1.0) mg/dL Est Cr Clr Drug Dosing mL/min Estimated GFR (MDRD) ml/min Glucose (74-106) mg/dL Calcium (8.5-10.1) mg/dL Magnesium (1.8-2.4) mg/dL Total Bilirubin (0.2-1.0) mg/dL AST (15-37) IU/L ALT (14-63) IU/L Alkaline Phosphatase (46-116) U/L Total Protein (6.4-8.2) g/dL Albumin (3.4-5.0) g/dL Globulin (2.6-4.0) g/dL Albumin/Globulin Ratio (0.9-1.6) TSH 3rd Generation (0.36-3.74) uIU/mL Urine Color YELLOW Urine Appearance CLEAR Urine pH 7.0 (5.0-8.0) Ur Specific [place] 1.015 (1.001-1.035) Urine Protein NEGATIVE (NEGATIVE) mg/dL Urine Glucose (UA) NEGATIVE (NEGATIVE) mg/dL Urine Ketones NEGATIVE (NEGATIVE) mg/dL Urine Occult Blood NEGATIVE (NEGATIVE) Urine Nitrite NEGATIVE (NEGATIVE) Urine Bilirubin NEGATIVE (NEGATIVE) Urine Urobilinogen 0.2 (<2.0) EU/dL Ur Leukocyte Esterase NEGATIVE (NEGATIVE) Urine RBC 0-1 (0-2/HPF) Urine WBC 0-2 (0-5/HPF) Ur Epithelial Cells FEW (NONE-FEW) Urine Bacteria FEW (NEGATIVE) Urine HCG, Qual NEGATIVE (NEGATIVE) Salicylates (0-20) mg/dL Urine Opiates Screen NEGATIVE (NEGATIVE) Ur Oxycodone Screen NEGATIVE (NEGATIVE) Urine Methadone Screen NEGATIVE (NEGATIVE) Acetaminophen ug/mL Ur Barbiturates Screen NEGATIVE (NEGATIVE) Ur Phencyclidine Scrn NEGATIVE (NEGATIVE) Ur Amphetamine Screen NEGATIVE (NEGATIVE) U Methamphetamines Scrn NEGATIVE (NEGATIVE) U Benzodiazepines Scrn NEGATIVE (NEGATIVE) U Cocaine Metab Screen NEGATIVE (NEGATIVE) U Marijuana (THC) Screen NEGATIVE (NEGATIVE) Ethyl Alcohol mg/dL Influenza Type A RNA (NEGATIVE) Influenza Type B RNA (NEGATIVE) SARS-CoV-2 RNA (KINA) (NEGATIVE) 07/20/20 07/20/20 07/20/20 Range/Units 11:04 11:04 11:17 WBC 6.22 (4.0-11.0) K/uL RBC 4.70 (4.30-5.90) M/uL Hgb 15.4 (12.0-16.0) g/dL Hct 45.2 (36.0-46.0) % MCV 96.2 (80.0-98.0) fL MCH 32.8 H (27.0-32.0) pg MCHC 34.1 (31.0-37.0) g/dL RDW Std Deviation 50.3 (28.0-62.0) fl RDW Coeff of Keely 14 (11.0-15.0) % Plt Count 261 (150-400) K/uL MPV 10.10 (7.40-12.00) fL Neut % (Auto) 56.1 (48.0-80.0) % Lymph % (Auto) 36.3 (16.0-40.0) % Stone % (Auto) 4.8 (0.0-15.0) % Eos % (Auto) 2.6 (0.0-7.0) % Baso % (Auto) 0.2 (0.0-1.5) % Neut # (Auto) 3.5 (1.4-5.7) K/uL Lymph # (Auto) 2.3 (0.6-2.4) K/uL Stone # (Auto) 0.3 (0.0-0.8) K/uL Eos # (Auto) 0.2 (0.0-0.7) K/uL Baso # (Auto) 0.0 (0.0-0.1) K/uL Nucleated RBC % 0.0 /100WBC Nucleated RBCs # 0 K/uL Sodium 144 (136-145) mmol/L Potassium 4.1 (3.5-5.1) mmol/L Chloride 109 H (98-107) mmol/L Carbon Dioxide 24.1 (21.0-32.0) mmol/L BUN 20 H (7.0-18.0) mg/dL Creatinine 0.9 (0.6-1.0) mg/dL Est Cr Clr Drug Dosing 59.15 mL/min Estimated GFR (MDRD) > 60.0 ml/min Glucose 119 H (74-106) mg/dL Calcium 8.9 (8.5-10.1) mg/dL Magnesium 2.1 (1.8-2.4) mg/dL Total Bilirubin 0.2 (0.2-1.0) mg/dL AST 17 (15-37) IU/L ALT 26 (14-63) IU/L Alkaline Phosphatase 79 (46-116) U/L Total Protein 6.8 (6.4-8.2) g/dL Albumin 3.7 (3.4-5.0) g/dL Globulin 3.1 (2.6-4.0) g/dL Albumin/Globulin Ratio 1.2 (0.9-1.6) TSH 3rd Generation 1.26 (0.36-3.74) uIU/mL Urine Color Urine Appearance Urine pH (5.0-8.0) Ur Specific [place] (1.001-1.035) Urine Protein (NEGATIVE) mg/dL Urine Glucose (UA) (NEGATIVE) mg/dL Urine Ketones (NEGATIVE) mg/dL Urine Occult Blood (NEGATIVE) Urine Nitrite (NEGATIVE) Urine Bilirubin (NEGATIVE) Urine Urobilinogen (<2.0) EU/dL Ur Leukocyte Esterase (NEGATIVE) Urine RBC (0-2/HPF) Urine WBC (0-5/HPF) Ur Epithelial Cells (NONE-FEW) Urine Bacteria (NEGATIVE) Urine HCG, Qual (NEGATIVE) Salicylates 4.5 (0-20) mg/dL Urine Opiates Screen (NEGATIVE) Ur Oxycodone Screen (NEGATIVE) Urine Methadone Screen (NEGATIVE) Acetaminophen <2.0 ug/mL Ur Barbiturates Screen (NEGATIVE) Ur Phencyclidine Scrn (NEGATIVE) Ur Amphetamine Screen (NEGATIVE) U Methamphetamines Scrn (NEGATIVE) U Benzodiazepines Scrn (NEGATIVE) U Cocaine Metab Screen (NEGATIVE) U Marijuana (THC) Screen (NEGATIVE) Ethyl Alcohol < 3.0 mg/dL Influenza Type A RNA NEGATIVE (NEGATIVE) Influenza Type B RNA NEGATIVE (NEGATIVE) SARS-CoV-2 RNA (KINA) NEGATIVE (NEGATIVE) Meds: Medications Discontinued Medications Generic Name Dose Route Start Last Admin Trade Name Trinity PRN Reason Stop Dose Admin Acetaminophen 650 mg 07/20/20 10:45 07/20/20 11:09 Acetaminophen 325 Mg Tab PO 07/20/20 10:46 650 mg NOW ONE Administration Diphenhydramine HCl 50 mg 07/20/20 10:44 07/20/20 11:03 Diphenhydramine 50 Mg Cap PO 07/20/20 10:45 Not Given ONETIME ONE Haloperidol 5 mg 07/20/20 10:44 07/20/20 11:12 Haloperidol 5 Mg Tab PO 07/20/20 10:45 Not Given ONETIME ONE Haloperidol 5 mg 07/20/20 11:10 07/20/20 11:11 Haloperidol 5 Mg Tab PO 07/20/20 11:11 5 mg ONETIME ONE Administration Departure - Departure Time of Disposition: 12:41 Disposition: DC/Tfer to Court of Law En 21 Clinical Impression: Encounter for medical screening examination, Acute psychosis - Discharge Information Referrals: PCP,None [Primary Care Provider] - Forms: ED Department Discharge Sepsis Event Note (ED) - Evaluation Sepsis Screening Result: No Definite Risk - Focused Exam Vital Signs: Vital Signs Temp Pulse Resp BP Pulse Ox 07/20/20 10:58 97 F 75 16 148/82 H 97 - My Orders Last 24 Hours: My Active Orders 07/20/20 10:22 EKG Documentation Completion [RC] STAT - Assessment/Plan Last 24 Hours: My Active Orders 07/20/20 10:22 EKG Documentation Completion [RC] STAT
[2020-07-20 16:36] VITALS: BP 135/79; PULSE 82
== END 2020-07-20 13:00 ==
LOC: MW.ED 10:16
DX: F23 Brief psychotic disorder (principal); I10 Essential (primary) hypertension; J45.909 Unspecified asthma, uncomplicated; M19.90 Unspecified osteoarthritis, unspecified site; E11.9 Type 2 diabetes mellitus without complications; E66.9 Obesity, unspecified; Z68.32 Body mass index [BMI] 32.0-32.9, adult; Z72.0 Tobacco use; Z88.2 Allergy status to sulfonamides; Z88.1 Allergy status to other antibiotic agents; Z91.048 Other nonmedicinal substance allergy status; Z88.8 Allergy status to other drugs, medicaments and biological substances; Z79.899 Other long term (current) drug therapy; Z20.822 Contact with and (suspected) exposure to COVID-19
CPT/HCPCS: 0240U; 36415; 80053; 80143; 80179; 80305; 80307; 81001; 81025; 83735; 84443; 85025; 93005; 99283; A9270

== ENCOUNTER 2020-10-18 16:09 | Emergency (ER) | payer MEDICARE ==
--- NOTE | 2020-10-18 16:21 | EDM.PDOC ---
ED HPI GENERAL MEDICAL PROBLEM - General Chief Complaint: Skin Complaint Stated Complaint: ALL OVER BODY ITCH Time Seen by Provider: 10/18/20 16:09 Source of Information: Reports: Patient History Limitations: Reports: No Limitations - History of Present Illness INITIAL COMMENTS - FREE TEXT/NARRATIVE: HISTORY AND PHYSICAL: History of present illness: Patient is a 50-year-old female who presents to the emergency room stating that her forearms itch "terribly". She reports over the past few months she has been changing her healthcare providers. She no longer uses [facility] for her mental health needs, she has missed several appointments to establish with a new provider, and is out of her anxiety medications. She also has failed to follow up with Dr. Choudhury for her pain medications. She states she attempted to call them this evening but the clinic is closed. Patient does take montelukast, Benadryl and Atarax for chronic pruritus. She states she was re cently evicted from where she had been living for 20+ years and is now in an apartment complex. She states she had gone into the pool and forgot she was allergic to chlorine. She also mentions that the soil and air that she was previously accustomed to was much more "pure" and now feels that the environment is causing her to have an increase in her allergy symptoms. Patient denies any fever, chills, headache, change in vision, syncope or near syncope. Denies any chest pain, back pain, shortness of breath or cough. Denies any abdominal pain, nausea, vomiting, diarrhea, constipation or dysuria. Has not noted any blood in urine or stool. Patient has been eating and drinking appropriately. Past medical history of hypertension, COPD, seizure, bipolar disorder, schizophrenia, and substance abuse/addiction. PCP: Dr Choudhury. Previously had mental health needs met through [facility] (she states she fired them). Review of systems: As per history of present illness and below otherwise all systems reviewed and negative. Past medical history: As per history of present illness and as reviewed below otherwise noncontributory. Surgical history: As per history of present illness and as reviewed below otherwise noncontributory. Social history: See social history for further information Family history: As per history of present illness and as reviewed below otherwise no ncontributory. Physical exam: General: Well developed and well nourished 50-year-old female. Alert and orientated x 3. Hyperverbal, nontoxic in appearance and in no acute distress. Vital signs are stable and have been reviewed by me. Nursing notes were reviewed. HEENT: Atraumatic, normocephalic, pupils equal and reactive bilaterally, negative for conjunctival pallor or scleral icterus, mucous membranes moist, TMs normal bilaterally, throat clear, neck supple, nontender, trachea midline. No drooling or trismus noted. No meningeal signs. No hot potato voice noted. Lungs: Clear to auscultation bilaterally. No wheezes, rales, or rhonchi. Chest nontender. Normal work of breathing, no accessory muscles used. Heart: S1S2, regular rate and rhythm without overt murmur, gallops, or rubs. No JVD. No peripheral edema Abdomen: Soft, nondistended, nontender. Skin: Superficial scratch blount to forearms. Remaining skin is intact, warm, dry. No lesions or rashes noted. Hematologic: No petechiae or purpra. Mucosa appropriate color and normal nail bed color and refill. Extremities: Atraumatic, moves all extremities per self without difficulty or deficits, negative for cords or calf pain. Neurovascular unremarkable. Neuro: Awake, alert, oriented. Cranial nerves II through XII unremarkable. Cerebellum unremarkable. Motor and sensory unremarkable throughout. Exam nonfocal. Psychiatric: Mood and affect are appropriate. Normal thought process. Answering questions appropriately. Notes: *This patient was seen and evaluated during the 2019 SARS-CoV-2 novel coronavirus pandemic period. Community viral transmission is ongoing at time of this encounter and the emergency department is operating under pandemic response procedures. Patient is a 50-year-old female who presents to the emergency room requesting something for her "itching and anxiety". She states she has taken 25 mg of Benadryl and her prescribed montelukast without relief. She previously had been prescribed Atarax but has not had this medication in a few months. She states she had to walk here from the library and has generalized aches and pains, she would like something stronger than Tylenol and ibuprofen for this. Initially she told the triage nurse she needed all of her prescriptions refilled. When I asked the patient about this she states she has "some at home" but would like her anxiety, allergy and pain medications refilled. I did call [facility], her preferred pharmacy, and they reported she has not refilled any of her prescriptions since August 06, 2020. Patient had received a prescription for lorazepam and Atarax. There was no previous prescription for narcotics as the patient stated previous for her "chronic pain". I did talk with the patient about this and she reports she plans on talking with Dr. Choudhury about getting something stronger than Tylenol and ibuprofen. Due to the patient's significant mental health illnesses, I am not comfortable refilling or prescribing after a few months of not taking/noncompliance without involvement of her primary care provider. I asked if we could do basic lab work, she states she was here few months ago and was told everything was "normal". She declines wanting any labs done today as she cannot afford it. She also states she does not want any prescriptions sent anywhere as she cannot afford those either. She does request a one-time dose and medications to be provided to her for home if able. I will give her some hydrocortisone topical cream for her forearms and a tablet of Atarax so she has had this before. I have talked with the patient about today's findings, in addition to providing specific details for plan of care. Reassessment at the time of disposition demonstrates that the patient is in no acute distress. The patient is stable for discharge, counseling was provided and we discussed in great detail signs and symptoms that would prompt them to return to the Emergency Department. Medication, follow up and supportive care measures were reviewed and discussed. Voices understanding and is agreeable to plan of care. Denies any further questions or concerns at this time. Diagnostics: Declines Therapeutics: Atarax, hydrocortisone 2.5 cream Prescription: Declines Impression: Anxiety Encounter for medication refill Medication noncompliance Allergies Plan: 1. You were evaluated today on an emergent basis. You need to have your medications refilled by her primary care provider. I also recommend that you either return to [facility] for your mental health needs or find someone who is willing to see you to have these medications refilled and receive further care and management. 2. You can alternate Tylenol and ibuprofen as needed for pain and fever management. You can continue to use Benadryl 25 -50 mg as directed. Topical calamine lotion or hydrocortisone cream can be used for itching. As you discussed, avoid irritants such as the chlorine/pool. 3. We encourage you to follow up with your primary care provider and/or recommended specialist in the next few days for re-evaluation and further care/management. 4. If your symptoms should worsen, new symptoms develop or any of the signs and symptoms we discussed should arise please return to the emergency room or call 911 (if needed). Definitive disposition and diagnosis as appropriate pending reevaluation and review of above. - Related Data Allergies Allergy/AdvReac Type Severity Reaction Status Date / Time carbamazepine [From Tegretol] Allergy Other Verified 07/20/20 10:29 sulfamethoxazole Allergy Hives Verified 07/20/20 10:29 [From Bactrim] trimethoprim [From Bactrim] Allergy Hives Verified 07/20/20 10:29 seasonal Allergy Itching Uncoded 07/20/20 10:29 Home Meds: Home Meds Montelukast [Singulair] 10 mg PO BEDTIME 05/09/15 [History] haloperidoL [Haloperidol] 5 mg PO DAILY 05/09/15 [History] hydrOXYzine HCL [Atarax] 10 mg PO DAILY 05/09/15 [History] ziprasidone HCL [Ziprasidone HCl] 60 mg PO DAILY 05/09/15 [History] Losartan [Cozaar] 50 mg PO DAILY 11/23/17 [History] Nabumetone 500 mg PO DAILY 11/23/17 [History] Topiramate 50 mg PO BID 11/23/17 [History] Venlafaxine [Effexor] 37.5 mg PO DAILY 11/23/17 [History] methylPREDNISolone [Medrol] 4 mg PO ASDIRECTED #1 dosepk 11/23/17 [Rx] Azithromycin [Zithromax] 250 mg PO DAILY 5 Days #6 tab 02/09/20 [Rx] predniSONE [Prednisone] 40 mg PO DAILY 5 Days #10 tablet 02/09/20 [Rx] predniSONE [Prednisone] 20 mg PO DAILY 5 Days #5 tablet 05/31/20 [Rx] Past Medical History HEENT History: Reports: Impaired Vision Cardiovascular History: Reports: Hypertension, SOB on Exertion, Syncope Respiratory History: Reports: Asthma, Bronchitis, Recurrent Gastrointestinal History: Reports: Other (See Below) Other Gastrointestinal History: abdominal abscess Genitourinary History: Reports: None Other Genitourinary History: cystitis [employer] History: Reports: None Musculoskeletal History: Reports: Arthritis, Back Pain, Chronic, Other (See Below) Other Musculoskeletal History: tendonitis Neurological History: Reports: None, Seizure, Vertigo Psychiatric History: Reports: Addiction, Anxiety, Bipolar, Depression Endocrine/Metabolic History: Reports: Diabetes, Type II, Other (See Below), Obesity/BMI 30+ Other Endocrine/Metabolic History: states borderline DM Hematologic History: Reports: None Immunologic History: Reports: None Oncologic (Cancer) History: Reports: None Dermatologic History: Reports: None Other Dermatologic History: cellulitis - Infectious Disease History Infectious Disease History: Reports: Chicken Pox - Past Surgical History HEENT Surgical History: Reports: None Cardiovascular Surgical History: Reports: None Respiratory Surgical History: Reports: None GI Surgical History: Reports: Cholecystectomy, Other (See Below) Other GI Surgeries/Procedures: surgical removal of abdominal abscess Female Surgical History: Reports: None Endocrine Surgical History: Reports: None Musculoskeletal Surgical History: Reports: Other (See Below) Other Musculoskeletal Surgeries/Procedures:: left knee surgery Dermatological Surgical History: Reports: Other (See Below) Social & Family History - Family History Family Medical History: No Pertinent Family History - Caffeine Use Caffeine Use: Reports: None Other Caffeine Use: caffeine pills Caffeine Use Comment: 4cups/day ED ROS GENERAL - Review of Systems Review Of Systems: Comprehensive ROS is negative, except as noted in HPI. ED EXAM, SKIN/RASH Exam: See Below (See dictation) Course - Vital Signs Last Recorded V/S: Last Vital Signs Temp 97.5 F 10/18/20 16:10 Pulse 88 10/18/20 16:10 Resp 18 10/18/20 16:10 BP 109/45 L 10/18/20 16:10 Pulse Ox 97 10/18/20 16:10 - Orders/Labs/Meds Orders: Active Orders 24 hr Category Date Time Status Acetaminophen [TylenoL] Med 10/18/20 18:01 Once 650 mg PO NOW ONE Medication Orders Acetaminophen (Acetaminophen 325 Mg Tab) 650 mg PO NOW ONE Stop: 10/18/20 18:02 Meds: Medications Generic Name Dose Route Start Last Admin Trade Name Freq PRN Reason Stop Dose Admin Acetaminophen 650 mg 10/18/20 18:01 Acetaminophen 325 Mg Tab PO 10/18/20 18:02 NOW ONE Discontinued Medications Generic Name Dose Route Start Last Admin Trade Name Freq PRN Reason Stop Dose Admin Hydrocortisone 1 gm 10/18/20 16:34 Hydrocortisone 2.5% Crm 30 Gm Tube TOP 10/18/20 16:35 ONETIME ONE Hydroxyzine HCl 25 mg 10/18/20 16:32 10/18/20 18:01 Hydroxyzine Hcl 25 Mg Tab PO 10/18/20 16:33 25 mg ONETIME ONE Administration Departure - Departure Time of Disposition: 18:01 Disposition: Home, W Home Health Agency 06 Clinical Impression: Encounter for medication refill, Noncompliance with medication regimen, Anxiety Allergies Qualifiers: Encounter type: initial encounter Qualified Code(s): T78.40XA - Allergy, unspecified, initial encounter - Discharge Information Instructions: Pruritus, Managing Anxiety, Adult Referrals: PCP,None [Primary Care Provider] - Forms: ED Department Discharge Additional Instructions: The following information is given to patients seen in the emergency department who are being discharged to home. This information is to outline your options for follow-up care. We provide all patients seen in our emergency department with a follow-up referral. The need for follow-up, as well as the timing and circumstances, are variable depending upon the specifics of your emergency department visit. If you don't have a primary care physician on staff, we will provide you with a referral. We always advise you to contact your personal physician following an emergency department visit to inform them of the circumstance of the visit and for follow-up with them and/or the need for any referrals to a consulting specialist. The emergency department will also refer you to a specialist when appropriate. This referral assures that you have the opportunity for follow-up care with a specialist. All of these measure are taken in an effort to provide you with optimal care, which includes your follow-up. Under all circumstances we always encourage you to contact your private physician who remains a resource for coordinating your care. When calling for follow-up care, please make the office aware that this follow-up is from your recent emergency room visit. If for any reason you are refused follow-up, please contact the [facility] Emergency Department at and asked to speak to the emergency department charge nurse. [facility] [address] [place] [id number] [facility] [address] [place] [address] Thank you for choosing the [facility] emergency department in [place] for your medical needs today. It was a pleasure caring for you. Today you were seen in the emergency department for medication administration and anxiety. 1. You were evaluated today on an emergent basis. You need to have your medications refilled by her primary care provider. I also recommend that you either return to [facility] for your mental health needs or find someone who is willing to see you to have these medications refilled and receive further care and management. 2. You can alternate Tylenol and ibuprofen as needed for pain and fever management. You can continue to use Benadryl 25 -50 mg as directed. Topical calamine lotion or hydrocortisone cream can be used for itching. As you discussed, avoid irritants such as the chlorine/pool. 3. We encourage you to follow up with your primary care provider and/or recommended specialist in the next few days for re-evaluation and further care/management. 4. If your symptoms should worsen, new symptoms develop or any of the signs and symptoms we discussed should arise please return to the emergency room or call 911 (if needed). Sepsis Event Note (ED) - Focused Exam Vital Signs: Vital Signs Temp Pulse Resp BP Pulse Ox 10/18/20 16:10 97.5 F 88 18 109/45 L 97 - My Orders Last 24 Hours: My Active Orders 10/18/20 18:01 Acetaminophen [TylenoL] 650 mg PO NOW ONE - Assessment/Plan Last 24 Hours: My Active Orders 10/18/20 18:01 Acetaminophen [TylenoL] 650 mg PO NOW ONE
[2020-10-18] MEDS ORDERED: hydrOXYzine HCl 25 MG Tab PO ONE (16:32)
[2020-10-18] MEDS ORDERED: Hydrocortisone 2.5% Crm 30 GM Tube TOP ONE (16:34)
[2020-10-18 17:14] VITALS: BP 109/45; PULSE 88
[2020-10-18] MEDS ORDERED: Acetaminophen 325 MG Tab PO ONE (18:01)
== END 2020-10-18 18:37 | disposition home or self-care (01) ==
LOC: MW.ED 16:09
DX: T78.40XA Allergy, unspecified, initial encounter (principal); F41.9 Anxiety disorder, unspecified; Z76.0 Encounter for issue of repeat prescription; E11.9 Type 2 diabetes mellitus without complications; Z68.30 Body mass index [BMI] 30.0-30.9, adult; E66.9 Obesity, unspecified; I10 Essential (primary) hypertension; J44.9 Chronic obstructive pulmonary disease, unspecified; Z88.1 Allergy status to other antibiotic agents; Z91.09 Other allergy status, other than to drugs and biological substances; Z88.8 Allergy status to other drugs, medicaments and biological substances; Z91.19 Patient's noncompliance with other medical treatment and regimen
CPT/HCPCS: 99283; A9270; 99284

== ENCOUNTER 2022-03-18 12:52 | Emergency (ER) | payer MEDICARE ==
[2022-03-18 15:50] VITALS: PULSE 106
[2022-03-18] MEDS ORDERED: Ketorolac 60 MG/2 ML SDV IM ONE (16:31)
[2022-03-18 17:08] LABS: CARBON DIOXIDE,CO2 24.7 mmol/L (21.0-32.0)
== END 2022-03-18 18:36 | disposition home or self-care (01) ==
LOC: MW.ED 12:52
DX: L98.8 Other specified disorders of the skin and subcutaneous tissue (principal); F48.9 Nonpsychotic mental disorder, unspecified; R46.89 Other symptoms and signs involving appearance and behavior; I10 Essential (primary) hypertension; J44.9 Chronic obstructive pulmonary disease, unspecified; E11.9 Type 2 diabetes mellitus without complications; E66.9 Obesity, unspecified; Z68.35 Body mass index [BMI] 35.0-35.9, adult; Z88.8 Allergy status to other drugs, medicaments and biological substances; Z88.2 Allergy status to sulfonamides; Z91.048 Other nonmedicinal substance allergy status
CPT/HCPCS: 36415; 80053; 83735; 84484; 85025; 85610; 87040; 96372; 99283; J1885

== ENCOUNTER 2022-03-29 14:41 | Emergency (ER) | payer MEDICARE ==
[2022-03-29 16:12] VITALS: PULSE 109
[2022-03-29] MEDS ORDERED: Cephalexin 500 MG Cap PO ONE (18:32)
[2022-03-29] MEDS ORDERED: Triamcinolone Acetonide 0.1% Crm 15 GM Tube TOP ONE (18:34)
[2022-03-29] MEDS ORDERED: Bacitracin/Neomycin/Polymyxin B Oint 28.4 GM Tube ONE (19:01)
[2022-03-29] MEDS ORDERED: Bacitracin/Neomycin/Polymyxin B Oint 28.4 GM Tube TOP ONE (19:02)
== END 2022-03-29 19:39 | disposition home or self-care (01) ==
LOC: MW.ED 14:41
DX: L20.9 Atopic dermatitis, unspecified (principal); S51.809A Unspecified open wound of unspecified forearm, initial encounter; I10 Essential (primary) hypertension; E11.9 Type 2 diabetes mellitus without complications; E66.9 Obesity, unspecified; Z68.30 Body mass index [BMI] 30.0-30.9, adult; Z88.1 Allergy status to other antibiotic agents; Z88.8 Allergy status to other drugs, medicaments and biological substances
CPT/HCPCS: 99282; A9270

== ENCOUNTER 2022-04-02 17:07 | Emergency (ER) | payer MEDICARE ==
[2022-04-02] MEDS ORDERED: Ketorolac 60 MG/2 ML SDV IM ONE (19:28)
[2022-04-02 20:43] LABS: CARBON DIOXIDE,CO2 26.2 mmol/L (21.0-32.0); POTASSIUM,K 3.7 mmol/L (3.5-5.1)
[2022-04-02] MEDS ORDERED: predniSONE 20 MG Tab PO ONE (21:10)
[2022-04-02] MEDS ORDERED: Doxycycline 100 MG Cap PO STA (21:13)
[2022-04-02 21:55] VITALS: BP 127/67; PULSE 71
== END 2022-04-02 21:40 | disposition home or self-care (01) ==
LOC: MW.ED 17:07
DX: R60.0 Localized edema (principal); I10 Essential (primary) hypertension; J45.909 Unspecified asthma, uncomplicated; E11.9 Type 2 diabetes mellitus without complications; E66.9 Obesity, unspecified; Z68.39 Body mass index [BMI] 39.0-39.9, adult; Z88.8 Allergy status to other drugs, medicaments and biological substances; Z88.2 Allergy status to sulfonamides; Z79.899 Other long term (current) drug therapy
CPT/HCPCS: 36415; 80053; 85025; 96372; 99284; A9270; J1885